=== PATIENT | male | born 1980 | race African-American/Black ===

== ENCOUNTER 2021-05-08 18:06 | Inpatient (IN) | payer OTHER, SELFPAY ==
--- NOTE | ~2021-05-08 | XR_ITS ---
EXAMINATION: XR chest 2V DATE: 05/08/2021 18:39 INDICATION: Chest pain. Cough. COVID-19 pneumonia. TECHNIQUE: Frontal and lateral views of the chest were obtained. COMPARISON: Chest 2 views 12/24/2018 FINDINGS: There are patchy airspace opacities in all right lung zones and in left mid and lower lung zones. No pleural effusion or pneumothorax. The heart size is normal. IMPRESSION: 1. Diffuse lung disease, consistent with COVID-19 pneumonia. Reviewed, dictated and finalized at location A.
--- NOTE | ~2021-05-08 | CT_ITS ---
EXAMINATION: CTA chest PE protocol DATE: 05/08/2021 21:40 INDICATION: Chest pain and shortness of breath. TECHNIQUE: Computed tomography angiography (CTA) of the chest was performed with 200 mL Omnipaque-350 intravenous contrast timed to evaluate the pulmonary arteries. Coronal maximum intensity projection 3D-reconstructions were created by the technologist. Automated exposure control and iterative reconst ruction technique were employed. The dose-length product was 622.61 mGy-cm. COMPARISON: CT abdomen and pelvis 08/04/2019 FINDINGS: There are patchy groundglass and airspace opacities in all lobes. No pleural effusion. The heart size is normal. No pericardial effusion. There is no pulmonary embolus. There is mild thoracic spondylosis. IMPRESSION: 1. No pulmonary embolus. Sensitivity is mildly decreased by motion artifact. 2. Diffuse lung disease, consistent with COVID-19 pneumonia. Reviewed, dictated and finalized at location A.
--- NOTE | 2021-05-08 18:09 | ECG_ITS ---
Measurements Intervals [place] Rate: 97 P: 31 NC: 126 QRS: 48 QRSD: 72 T: 13 QT: 297 QTc: 378 Interpretive Statements SINUS RHYTHM NORMAL ECG Electronically Signed On 05-08-2021 19:14:06 CDT by Umer Ray D.O.
[2021-05-08 18:10] VITALS: BP 151/62; PULSE 104; RESP 28; TEMP 37.8; O2SAT 92
[2021-05-08 18:28] LABS: Basophils Percent Auto 0.2 % (0.2-1.2); Hematocrit 42.4 % (42.0-52.0); Hemoglobin 13.7 g/dL (14.0-18.0); Immature Granulocyte Absolute 0.01 K/mm3 (0.00-0.031); Immature Granulocyte Percent A 0.2 % (0-0.5); Immature Platelet Fraction Pct 6.4 % (0.9-11.2); Lymphocytes Absolute Auto 1.98 K/mm3 (0.9-3.2); Lymphocytes Percent Auto 37.6 % (18.3-44.2); Mean Corpuscular HGB Conc 32.3 g/dl (32-36); Mean Corpuscular Hemoglobin 28.8 pg (26-34); Mean Corpuscular Volume 89.1 fl (80-100); Mean Platelet Volume 11.1 fl (7.4-10.4); Monocytes Absolute Auto 0.2 K/mm3 (0.1-0.6); Neutrophils Absolute Auto 3.1 K/mm3 (1.3-6.7); Platelet Count Result 138 k/mm3 (150-375); Red Blood Count 4.76 M/mm3 (4.6-6.20); Red Cell Distribution Width 11.9 % (11.5-14.5); White Blood Count 5.3 K/mm3 (4.5-10.0)
[2021-05-08 18:41] LABS: Stomatocytes 1+ (NORMAL)
[2021-05-08 18:42] LABS: Anion Gap 10 mmol/L (8-16); Blood Urea Nitrogen 17 mg/dL (9-20); Carbon Dioxide 27 mmol/L (22-30); Chloride 96 mmol/L (98-107); Estimated Glomerular Filt Rate > 60; Glucose 108 mg/dL (65-110); Potassium 4.1 mmol/L (3.4-5.0); Sodium 133 mmol/L (137-145)
[2021-05-08 18:53] LABS: Troponin I < 0.012 ng/mL (0.000-0.034)
--- NOTE | 2021-05-08 19:45 | PC.NURSE ---
pt O2 sat 90% per PA Dennis pt placed 2 L nasal cannula
--- NOTE | 2021-05-08 19:50 | ED.CHESTPAIN ---
HPI - Chest Pain General Chief Complaint: Chest Pain Stated Complaint: COVID +, SOB, chest pain Time Seen by Provider: 05/08/21 19:29 Source: patient Mode of arrival: ambulatory Limitations: no limitations History of Present Illness HPI narrative: This is a 40-year-old male that presents to the emergency department for ongoing chest pain and shortness of breath. Reports symptoms started on 30 of April. He tested positive for Covid on the . He did not get a Covid vaccine. Reports fever, cough, nausea, vomiting. Denies lower extremity edema. Related Data Allergies Allergy/AdvReac Type Severity Reaction Status Date / Time No Known Allergies Allergy Unknown Verified 05/08/21 20:01 Review of Systems Review of Systems: CONSTITUTIONAL: Reports fever ENT: Reports rhinorrhea, congestion, sore throat CARDIOVASCULAR: Reports chest pain RESPIRATORY: Reports cough and dyspnea. GASTROINTESTINAL: Reports nausea, vomiting All systems reviewed & are unremarkable except as noted in HPI and below PMFSH Past Medical History Medical History (Updated 05/08/21 @ 22:35 by Paige Collins PA-C) History of seizures Social History Social History (Updated 05/08/21 @ 19:55 by Paige Collins PA-C) Substance use: never Exam Narrative: GENERAL: Ill-appearing, well-nourished, and in no acute distress. HEAD: Normocephalic, atraumatic. EYES: EOMI. ENT: Nares clear, no rhinorrhea or epistaxis. Mucous membranes moist. Oropharynx without tonsillar hypertrophy exudate or other lesions. Bilateral TMs pearly alvarez non-bulging NECK: Supple. No adenopathy or masses. CHEST: No respiratory distress. Rales noted at the lung bases. No wheezes or rhonchi HEART: Regular rate and rhythm. No murmur heard. Normal peripheral pulses. ABDOMEN: Soft, nontender, nondistended, normal active bowel sounds. EXTREMITIES: Normal range of motion. No edema. SKIN: Warm, dry, no rash. NEURO: No focal deficits. Alert and oriented x3. PSYCH: Normal mood and affect Course Consultations Consultation #1: Spoke with hospitalist about patient and workup who accepts admission Date: 05/08/21 Time: 22:30 Vital Signs Vital signs: Vital Signs Temperature 100.0 F H 05/08/21 18:10 Pulse Rate 104 H 05/08/21 18:10 Respiratory Rate 28 H 05/08/21 18:10 Blood Pressure 151/62 H 05/08/21 18:10 Pulse Oximetry 92 05/08/21 18:10 Temperature 100.0 F H 05/08/21 18:10 Pulse Rate 77 05/08/21 22:28 Respiratory Rate 24 H 05/08/21 22:28 Blood Pressure 120/72 05/08/21 22:28 Pulse Oximetry 95 05/08/21 22:28 MDM - Chest Pain MDM Narrative Medical decision making narrative: Patient presents emergency department for ongoing shortness of breath and chest pain since recent diagnosis of Covid. Febrile and tachycardic upon arrival. Patient also tachypneic with oxygen saturation remaining around 90. He was placed on 2 L nasal cannula with improvement. Oxygen saturation has been in the mid 90s and his respiratory rate has normalized. CBC and metabolic panel without concerning findings. LDH is elevated. EKG without ST changes. Baseline and 3-hour troponin are negative. D-dimer was elevated, so CTA of the chest was obtained. No evidence of PE. Does show diffuse lung disease consistent with Covid pneumonia. Patient hydrated and given anti-emetic and antipyretic. Started on dexamethasone and remdesivir. Spoke with hospitalist about patient and workup who accepts admission Lab Data Attestation: I reviewed the patient's lab results. Result diagrams: 05/08/21 18:19 05/08/21 18:19 Labs: Lab Results 05/08/21 05/08/21 05/08/21 Range/Units 18:19 18:19 18:19 WBC 5.3 (4.5-10.0) K/mm3 RBC 4.76 (4.6-6.20) M/mm3 Hgb 13.7 L (14.0-18.0) g/dL Hct 42.4 (42.0-52.0) % MCV 89.1 (80-100) fl MCH 28.8 (26-34) pg MCHC 32.3 (32-36) g/dl RDW 11.9 (11.5-14.5) % Plt Count 138 L (150-375) k/mm3 MPV 11.1
[2021-05-08 19:54] LABS: Alveolar/Arterial O2 Gradient 43.3 mmHg; Carboxyhemoglobin 0.5 % THb (0-2.0); Fractional Inspired Oxygen 21 %; HCO3 ABG 25.7 mEq/l (22.0-26.0); Methemoglobin ABG 0.3 %THb (0-1.5); Oxygen Content ABG 18.1 %vol (16.0-22.0); Oxygen Saturation ABG 94.9 % (95.0-100.0); Oxyhemoglobin 92.8 % THb (90.0-100.0); PCO2 ABG 33.3 mmHg (35.0-45.0); PO2 ABG 66.6 mmHg (80.0-100.0); PO2 FiO2 Ratio Arterial Blood 3.17 %; Reduced Hemoglobin 6.4 %THb (0-5.0); Total Hemoglobin 13.9 g/dL (12.0-18.0)
[2021-05-08 19:56] VITALS: BP 152/74; PULSE 96; RESP 24; O2SAT 91
[2021-05-08 19:56] LABS: Device ROOM AIR; Modified Allen's Test Pass; Site Drawn RIGHT RADIAL; pH ABG 7.505 (7.350-7.450)
[2021-05-08 20:05] LABS: Alanine Aminotransferase 25 U/L (4-50); Albumin Level 4.1 g/dL (3.5-5.1); Alkaline Phosphatase 59 U/L (38-126); Aspartate Amino Transferase 53 U/L (17-59); Bilirubin,Total 0.4 mg/dL (0.2-1.3); Lactate Dehydrogenase 690 U/L (313-618)
[2021-05-08] MEDS: ONDANSETRON INJ 4 MG/2 ML VIAL IV PUSH (20:14)
[2021-05-08] MEDS: SODIUM CHLORIDE 0.9% IV 500 ML 999 ML IV CONT (20:14)
[2021-05-08] MEDS: levETIRAcetam 500MG/NACL 100ML 500 MG/100 ML BAG 400 MG IVPB (20:19)
[2021-05-08 20:30] LABS: Procalcitonin 0.4 ng/mL
[2021-05-08 20:40] LABS: INR 0.9
[2021-05-08 20:41] LABS: Partial Thromboplastin Time 28.3 SECONDS (22.3-36.8)
[2021-05-08 20:44] LABS: D Dimer 0.53 ug/mL (<0.48)
[2021-05-08] MEDS: DEXAMETHASONE SOD PHOS INJ 4 MG/ML VIAL 6 MG IV PUSH (21:49)
[2021-05-08] MEDS: REMDESIVIR 200 MG/NS 250 ML 200 MG/250 ML BAG 250 MG IVPB (21:58)
[2021-05-08 22:15] LABS: Troponin I < 0.012 ng/mL (0.000-0.034)
[2021-05-08 22:28] VITALS: BP 120/72; PULSE 77; RESP 24; O2SAT 95
[2021-05-08] MEDS: SODIUM CHLORIDE 0.9% IV 250 ML 30 ML IV CONT (23:00)
[2021-05-09] VITALS (14 sets, daily range): BP systolic 117–151; BP diastolic 60–77; PULSE 66–79; RESP 16–20; TEMP 36.6–37.3; O2SAT 90–98; BMI 30.8
[2021-05-09 01:29] LABS: Troponin I < 0.012 ng/mL (0.000-0.034)
--- NOTE | 2021-05-09 02:47 | ADMGEN ---
This patient, Kris Mcginnis, was admitted to 3 [facility] Surg Room 313-01 at 0000. Patient/family oriented to hospital policies and general routines including ID bracelet, bed and alarms, visiting hours, pain management, procedures, bathroom and other care routines, personal items, smoking policy, room service/diet, and visiting hours. Information on how to activate the Rapid Response Team has been discussed. Patient/Family are encouraged to report perceived risks to care and to ask questions if they do not understand what they are told or what they should do.
--- NOTE | 2021-05-09 02:59 | PM.IMHP ---
H&P: HPI History of Present Illness Date/Time: 05/09/21 02:59 Chief Complaint: shortness of breath Narrative: This is a 40-year-old male with past medical history nonsignificant for any illnesses. Patient presented today to the emergency room with complaints of shortness of breath cough nausea vomiting unable to keep anything down chills fevers for the last 3 days or so patient tested positive for COVID last Thursday. upon arrival to the emergency room patient was found to have oxygen saturation in the 80s which resolved on 2 L by nasal cannula. Preliminary workup was significant for chest x-ray with infiltrate a CT was negative for acute pulmonary embolism. Review of Systems Review of Systems: shortness of breath nausea vomiting chills fevers Constitutional: Constitutional: Reports chills, Reports fatigue and Reports fever(s) Eyes: Eyes: Denies change in vision ENT: Denies dysphagia, Denies nasal congestion, Denies nasal discharge, Denies nasal obstruction and Denies odynophagia Cardiovascular: Cardiovascular: Denies irregular heart rhythm, Denies radiating jaw, neck or arm pain, Denies palpitations and Denies dyspnea Respiratory: Respiratory: Reports cough, Reports dyspnea and Denies wheezing Gastrointestinal: Gastrointestinal: Reports nausea and Reports vomiting Genitourinary: Genitourinary: Reports no additional male genitourinary complaints Musculoskeletal: Musculoskeletal: Reports no additional musculoskeletal complaints Integumentary/Breasts: Skin/Breast: Reports system reviewed and no additional complaints, except as docu Neurologic: Reports system reviewed and no additional complaints, except as documented Psychiatric: Psychiatric: Reports no additional psychiatric complaints Endocrine: Endocrine: Reports no additional endocrine complaints Hematologic/Lymphatic: Hematologic/Lymphatic: Reports no additional hematologic/lymphatic complaints Allergic/Immunologic: Allergic/Immunologic: Reports no additional allergic/immunologic complaints [facility] Past Medical History Medical History History of seizures Social History Social History Smoking status: Never smoker Alcohol intake: never Substance use: never Spiritual care concerns: No Meds Home Medications and Allergies Home Medications Medication Instructions Recorded Confirmed Type acetaminophen [Acetaminophen Pain 500 mg PO Q6H PRN 05/09/21 05/09/21 History Relief] buspirone 20 mg PO DAILY 05/09/21 05/09/21 History divalproex 1,000 mg PO DAILY 05/09/21 05/09/21 History Allergies Allergy/AdvReac Type Severity Reaction Status Date / Time No Known Allergies Allergy Unknown Verified 05/09/21 00:52 Vital Signs Vital Signs - 24 hr 05/08/21 18:10 05/08/21 19:56 05/08/21 22:28 Temperature 100.0 F H Pulse Rate 104 H 96 77 Respiratory Rate 28 H 24 H 24 H Blood Pressure 151/62 H 152/74 H 120/72 Pulse Oximetry 92 91 95 05/09/21 00:00 05/09/21 01:18 05/09/21 01:31 Temperature 97.9 F Pulse Rate 78 78 79 Respiratory Rate 20 20 Blood Pressure 138/71 Pulse Oximetry 90 90 Exam Narrative: laying in the rocha Const: General: comfortable, no acute distress, well developed, alert, awake and other ( well-appearing) Nutritional Appearance: average body habitus Orientation/consciousness: patient oriented x3 HENMT: Head: normal to inspection, normocephalic and atraumatic Ears: hearing grossly normal bilaterally Face and sinus: normal facial exam Eyes: General: appearance normal, both eyes and all related structures Pupils: Equal, round and reactive pupils present EOM: EOMs intact bilaterally Neck: Neck: full ROM, no lymphadenopathy and no JVD Thyroid: thyroid normal Lymphatic: no lymphadenopathy noted Resp: Effort & Inspection: normal respiratory effort and able to speak in complete sentences Auscultati
[2021-05-09] MEDS: ACETAMINOPHEN 500 MG TABLET 1000 MG PO (03:30)
--- NOTE | 2021-05-09 03:54 | PC.NURSE ---
Per Dr Esteban covid plasma can be given AM 05/09/21.
[2021-05-09] MEDS: guaiFENesin/CODEINE (*CRX) 200/20 MG 10 ML SYRUP PO ×3 (04:00→16:33)
[2021-05-09 07:00] LABS: INR 0.9; Prothrombin Time 12.1 Seconds (11.1-14.7)
[2021-05-09 07:04] LABS: Alanine Aminotransferase 22 U/L (4-50); Estimated CRCL calculation 99 ml/min; Estimated Glomerular Filt Rate > 60
[2021-05-09] MEDS: SODIUM CHLORIDE 0.9% IV 250 ML 30 ML (16:33)
[2021-05-09] MEDS: TUBING, BLOOD PLUM PUMP TUBING 1 EACH XX (16:33)
--- NOTE | 2021-05-09 16:54 | PM.IMPN ---
Progress Note: A&P Assessment and Plan (1) Acute respiratory failure with hypoxia: Code(s): J96.01 - Acute respiratory failure with hypoxia Status: Acute Assessment and Plan: secondary to COVID-19 pneumonia CTA negative for pulmonary embolism maintaining adequate O2 sats on 2 L per nasal cannula continue supplemental O2 as needed with goal saturation 90% or above (2) Pneumonia due to 2019 novel coronavirus: Code(s): U07.1 - COVID-19; J12.82 - Pneumonia due to coronavirus disease 2019 Status: Acute Assessment and Plan: Patient tested positive on 05/01/2021. CXR and CTA showed diffuse lung disease consistent with COVID-19 pneumonia. Continue Remdesivir for up to 5 days. Started on 05/08. ALT within normal limits Continue dexamethasone for up to 10 days Supplemental O2 as needed Supportive care to include bronchodilators, expectorants, antipyretics, incentive spirometry Trend acute phase reactants Subjective Date/time seen: 05/09/21 16:54 Interval history: Date of service: 05/09/2021 Kris Mcginnis is a 40 year old male with a history of seizures who is seen in follow up for COVID-19. He is starting to feel better. He is still having dyspnea at rest and with exertion. He has chest and abdominal discomfort with deep inspiration or when coughing. He has been having coughing fits frequently with production of white sputum. He has been able to get up and ambulate around the room but is coughing more with exertion. Denies chest pain or palpitations. He denies fevers. Notes he had chills last night and woke up with sweats but none today. Appetite is poor. He has been drinking water and gatorade but has not eaten much of anything. Feels his sense of taste is altered and food is not sounding good. No anosmia. He had a headache this afternoon but it has improved with tylenol. Denies body aches. No abdominal pain. No diarrhea. His last BM was several days ago. No dizziness or lightheadedness, no weakness. He is in good spirits. Review of Systems Review of Systems: All systems reviewed & are unremarkable except as noted in HPI and below Exam Narrative: Mr. Mcginnis is a well-nourished, well-appearing 40-year-old male who is lying semi-recumbent in bed. He appears comfortable and is in NARD. Neuro: awake, alert and oriented x4, speech clear, no focal neuro deficits noted HEENMT: normocephalic, atraumatic, EOMI, sclerae anicteric, moist oral mucosa Neck: supple, no lymphadenopathy Respiratory: diminished breath sounds bilaterally with faint inspiratory crackles in left lower lobe, nonlabored breathing Cardio: regular rate, regular rhythm with S1-S2 Abdomen: nondistended, normoactive bowel sounds, soft, nontender to palpation Extremities: no edema, erythema, or tenderness to palpation, DP pulses 2+ bilaterally Skin: no rashes or lesions, warm and dry Psych: appropriate mood and affect, judgment and insight intact Objective Data Vital Signs Vital Signs: Vital Signs - 24 hr 05/08/21 18:10 05/08/21 19:56 05/08/21 22:28 Temperature 100.0 F H Pulse Rate 104 H 96 77 Respiratory Rate 28 H 24 H 24 H Blood Pressure 151/62 H 152/74 H 120/72 Pulse Oximetry 92 91 95 05/09/21 00:00 05/09/21 01:18 05/09/21 01:31 Temperature 97.9 F Pulse Rate 78 78 79 Respiratory Rate 20 20 Blood Pressure 138/71 Pulse Oximetry 90 90 05/09/21 04:00 05/09/21 08:00 05/09/21 08:45 Temperature 97.8 F 97.9 F Pulse Rate 70 66 67 Respiratory Rate 20 18 Blood Pressure 151/76 H 143/68 H Pulse Oximetry 92 96 96 05/09/21 12:00 05/09/21 16:00 05/09/21 16:26 Temperature 98.2 F 98.4 F 98.4 F Pulse Rate 71 74 73 Respiratory Rate 18 16 16 Blood Pressure 130/60 139/76 139/76 Pulse Oximetry 95 97 97 05/09/21 16:44 05/09/21 16:45 Temperature 99.1 F 99.1 F Pulse Rate 77 77 Respiratory Rate 16 16 Blood Pressure 140/77 140/77 Pulse Oximetry 97 97 Intake/Output Intake/Output: Intake &
[2021-05-09] MEDS: REMDESIVIR 100 MG/NS 250 ML 100 MG/250 ML BAG 250 MG IVPB (21:43)
[2021-05-09] MEDS: ACETAMINOPHEN 325 MG TABLET 650 MG PO (22:01)
[2021-05-10] VITALS (8 sets, daily range): BP systolic 112–136; BP diastolic 57–86; PULSE 64–76; RESP 14–18; TEMP 36.2–37.1; O2SAT 93–100
[2021-05-10 08:53] LABS: Hematocrit 39.7 % (42.0-52.0); Hemoglobin 12.5 g/dL (14.0-18.0); Mean Corpuscular HGB Conc 31.5 g/dl (32-36); Mean Corpuscular Hemoglobin 28.5 pg (26-34); Mean Corpuscular Volume 90.6 fl (80-100); Mean Platelet Volume 11.2 fl (7.4-10.4); Platelet Count Result 192 k/mm3 (150-375); Red Blood Count 4.38 M/mm3 (4.6-6.20); Red Cell Distribution Width 11.9 % (11.5-14.5); White Blood Count 6.7 K/mm3 (4.5-10.0)
[2021-05-10 09:02] LABS: INR 0.8; Prothrombin Time 11.4 Seconds (11.1-14.7)
[2021-05-10 09:05] LABS: Alanine Aminotransferase 24 U/L (4-50); Albumin Level 3.8 g/dL (3.5-5.1); Alkaline Phosphatase 51 U/L (38-126); Anion Gap 7 mmol/L (8-16); Aspartate Amino Transferase 47 U/L (17-59); Bilirubin,Total 0.3 mg/dL (0.2-1.3); Blood Urea Nitrogen 20 mg/dL (9-20); CRP 5.3 mg/dL (<1.0); Calcium 8.9 mg/dL (8.4-10.2); Carbon Dioxide 29 mmol/L (22-30); Chloride 105 mmol/L (98-107); Estimated CRCL calculation 99 ml/min; Estimated Glomerular Filt Rate > 60; Glucose 104 mg/dL (65-110); Potassium 4.3 mmol/L (3.4-5.0); Sodium 141 mmol/L (137-145)
[2021-05-10] MEDS: guaiFENesin 12 HR 600 MG TABCR PO ×2 (09:41→20:54)
[2021-05-10] MEDS: ENOXAPARIN 40 MG/0.4 ML SYRINGE SUB-Q (09:41)
[2021-05-10] MEDS: DIVALPROEX SODIUM ER 500 MG TAB.24H 1000 MG PO (09:42)
[2021-05-10] MEDS: ACETAMINOPHEN 325 MG TABLET 650 MG PO ×2 (10:29→22:12)
--- NOTE | 2021-05-10 10:48 | PM.IMPN ---
Progress Note: A&P Assessment and Plan (1) Acute respiratory failure with hypoxia: Code(s): J96.01 - Acute respiratory failure with hypoxia Status: Acute Assessment and Plan: Secondary to COVID-19 pneumonia CTA negative for pulmonary embolism maintaining adequate O2 sats on 2 L per nasal cannula continue supplemental O2 as needed with goal saturation 90% or above. Wean as tolerated. (2) Pneumonia due to 2019 novel coronavirus: Code(s): U07.1 - COVID-19; J12.82 - Pneumonia due to coronavirus disease 2019 Status: Acute Assessment and Plan: Tested positive on 05/01/2021. CXR and CTA showed diffuse lung disease consistent with COVID-19 pneumonia. Continue Remdesivir for up to 5 days. Started on 05/08. ALT within normal limits Continue dexamethasone for up to 10 days Supplemental O2 as needed Supportive care to include bronchodilators, expectorants, antipyretics, incentive spirometry, [place] Trend acute phase reactants Subjective Date/time seen: 05/10/21 10:48 Interval history: Date of service: 05/10/2021 Kris Mcginnis is a 40 year old male with a history of seizures who is seen in follow up for COVID-19. He is coughing more frequently today which causes him to feel short of breath. He does have pleuritic chest pain with coughing and has trouble with deep inspiration. cough is productive of clear-white mucus. He feels short of breath after having a coughing spell but a few minutes later he is able to recover and his shortness of breath is not a significant. He is still able to get up and walk to the bathroom. He had a good dinner last night but did not have breakfast yet this morning. Still drinking plenty of fluids. No abdominal pain, nausea, vomiting, diarrhea, fever, chills, or sweats. Had a mild frontal headache this morning. Denies any sinus congestion. Review of Systems Review of Systems: All systems reviewed & are unremarkable except as noted in HPI and below Exam Narrative: Mr. Mcginnis is a well-nourished, well-appearing 40-year-old male who is lying semi-recumbent in bed. He appears comfortable and is in NARD. Neuro: awake, alert and oriented x4, speech clear, no focal neuro deficits noted HEENMT: normocephalic, atraumatic, EOMI, sclerae anicteric, moist oral mucosa Neck: supple, no lymphadenopathy Respiratory: diminished breath sounds bilaterally. Able to speak in full sentences but interrupted with episodes of coughing. Breathing is more shallow. Cardio: regular rate, regular rhythm with S1-S2 Abdomen: nondistended, normoactive bowel sounds, soft, nontender to palpation Extremities: no edema, erythema, or tenderness to palpation, DP pulses 2+ bilaterally Skin: no rashes or lesions, warm and dry Psych: appropriate mood and affect, judgment and insight intact Objective Data Vital Signs Vital Signs: Vital Signs - 24 hr 05/09/21 12:00 05/09/21 16:00 05/09/21 16:26 Temperature 98.2 F 98.4 F 98.4 F Pulse Rate 69 72 73 Respiratory Rate 18 16 16 Blood Pressure 130/60 139/76 139/76 Pulse Oximetry 95 97 97 05/09/21 16:44 05/09/21 16:45 05/09/21 17:45 Temperature 99.1 F 99.1 F 97.8 F Pulse Rate 77 77 79 Respiratory Rate 16 16 16 Blood Pressure 140/77 140/77 142/64 H Pulse Oximetry 97 97 95 05/09/21 18:50 05/09/21 20:00 05/10/21 00:00 Temperature 98 F 97.9 F 98.8 F Pulse Rate 78 75 70 Respiratory Rate 20 18 18 Blood Pressure 117/64 133/68 136/58 L Pulse Oximetry 96 98 96 05/10/21 04:00 05/10/21 08:59 Temperature 97.8 F 98.5 F Pulse Rate 65 68 Respiratory Rate 18 14 Blood Pressure 131/57 L 135/61 Pulse Oximetry 100 98 Intake/Output Intake/Output: Intake & Output 05/07/21 05/08/21 05/09/21 05/10/21 23:59 23:59 23:59 23:59 Intake Total 915 2703 750 Output Total 900 600 Balance 915 1803 150 Meds/Results Medications: Active Medications Generic Name Dose Route Start Last Admin Trade Name Freq PRN Reason Stop Dos
[2021-05-10] MEDS: BENZONATATE 100 MG CAPSULE PO ×2 (11:40→22:12)
[2021-05-10] MEDS: REMDESIVIR 100 MG/NS 250 ML 100 MG/250 ML BAG 250 MG IVPB (22:12)
[2021-05-11] VITALS (7 sets, daily range): BP systolic 132–157; BP diastolic 65–84; PULSE 61–100; RESP 12–18; TEMP 36.2–36.8; O2SAT 92–99
[2021-05-11 07:34] LABS: Hematocrit 37.8 % (42.0-52.0); Hemoglobin 11.9 g/dL (14.0-18.0); Mean Corpuscular HGB Conc 31.5 g/dl (32-36); Mean Corpuscular Hemoglobin 28.4 pg (26-34); Mean Corpuscular Volume 90.2 fl (80-100); Mean Platelet Volume 11.2 fl (7.4-10.4); Platelet Count Result 250 k/mm3 (150-375); Red Blood Count 4.19 M/mm3 (4.6-6.20); White Blood Count 7.1 K/mm3 (4.5-10.0)
[2021-05-11 07:42] LABS: Alanine Aminotransferase 27 U/L (4-50); Albumin Level 3.8 g/dL (3.5-5.1); Alkaline Phosphatase 50 U/L (38-126); Anion Gap 7 mmol/L (8-16); Aspartate Amino Transferase 40 U/L (17-59); Bilirubin,Total 0.3 mg/dL (0.2-1.3); Blood Urea Nitrogen 18 mg/dL (9-20); Calcium 9.1 mg/dL (8.4-10.2); Carbon Dioxide 27 mmol/L (22-30); Chloride 105 mmol/L (98-107); Estimated CRCL calculation 117 ml/min; Estimated Glomerular Filt Rate > 60; Glucose 120 mg/dL (65-110); Potassium 4.3 mmol/L (3.4-5.0); Sodium 139 mmol/L (137-145)
[2021-05-11] MEDS: guaiFENesin 12 HR 600 MG TABCR PO (08:41)
[2021-05-11] MEDS: DIVALPROEX SODIUM ER 500 MG TAB.24H 1000 MG PO (08:41)
[2021-05-11] MEDS: ENOXAPARIN 40 MG/0.4 ML SYRINGE SUB-Q (08:41)
[2021-05-11] MEDS: BENZONATATE 100 MG CAPSULE PO (08:41)
[2021-05-11] MEDS: ACETAMINOPHEN 325 MG TABLET 650 MG PO (10:13)
--- NOTE | 2021-05-11 11:06 | PCRCNOTE ---
HOME OXYGEN EVALUATION COMPLETE; PT. HAS NO O2 REQUIREMENTS. PT.'S R.N. AND AYDE [employer] BOTH NOTIFIED OF RESULTS.
--- NOTE | 2021-05-11 11:20 | PM.DS ---
DS: Admitting Diagnosis Admitting Diagnosis COVID-19 pneumonia DS: Discharge Diagnosis Discharge Diagnosis (1) Acute respiratory failure with hypoxia: Code(s): J96.01 - Acute respiratory failure with hypoxia Status: Acute Assessment and Plan: Secondary to COVID-19 pneumonia CTA negative for pulmonary embolism Required up to 2 L supplemental oxygen per nasal cannula and was able to be weaned to room air. Home O2 eval performed with no need for oxygen with activity or rest (2) Pneumonia due to 2019 novel coronavirus: Code(s): U07.1 - COVID-19; J12.82 - Pneumonia due to coronavirus disease 2019 Status: Acute Assessment and Plan: Tested positive on 05/01/2021. CXR and CTA showed diffuse lung disease consistent with COVID-19 pneumonia. Received 3 doses of IV Remdesivir. Received 4 doses of IV dexamethasone. Will continue p.o. dexamethasone to complete 10 days as an outpatient. Continue with supportive care. Discharge home with expectorants and albuterol inhaler Has not received COVID-19 vaccine. He is interested in getting the vaccine 90 days post COVID DS: Summary Hospital Course Hospital Course: Date of admission: 05/08/2021 Date of discharge: 05/11/2021 Kris main is a 40-year-old male with history of seizures to presented to the emergency department on 05/08/2021 with complaints of ongoing dyspnea and chest discomfort after testing positive for COVID-19 on 05/01/2021. Upon presentation to the emergency department, he was febrile at 100.0?, mildly tachypneic with O2 sats around 90% and he was started on supplemental O2 at 2 L. CBC with slightly decreased hemoglobin and mild thrombocytopenia, BMP with sodium 133, chloride 96, creatinine 1.4, additional electrolytes stable, troponin negative, elevated LDH and D-dimer, CXR with diffuse lung disease consistent with COVID 19 pneumonia, and CTA also with diffuse lung disease and no PE. He was admitted to the hospitalist service for further evaluation management. Please see above for further details. He was treated for COVID-19 pneumonia and had symptomatic improvement with steroids and antivirals. He began feeling much better and was able to be weaned to room air. He requested discharge home. Home O2 eval performed with no need for supplemental oxygen. We discussed COVID-19 precautions as well as worrisome signs and symptoms for which to return. He was educated on his medications. Given his overall improvement, he was determined to no longer require inpatient care and was felt to be stable for discharge. He will need to follow-up with his PCP within 1 week for further monitoring. He was discharged in hemodynamically stable condition on 05/11/2021. Status at Discharge Functional status at discharge: independent ambulation Overall status at discharge: patient is progressing back to baseline Time Spent with Patient Time attestation: Total time spent providing and/or coordinating discharge services: 45 minutes Time spent: Greater than 30 minutes Exam Narrative: Mr. Main is a well-nourished, well-appearing 40-year-old male who is lying semi-recumbent in bed. He appears comfortable and is in NARD. Neuro: awake, alert and oriented x4, speech clear, no focal neuro deficits noted HEENMT: normocephalic, atraumatic, EOMI, sclerae anicteric, moist oral mucosa Neck: supple, no lymphadenopathy Respiratory: diminished breath sounds bilaterally. Able to speak in full sentences. Breathing is nonlabored. Cardio: regular rate, regular rhythm with S1-S2 Abdomen: nondistended, normoactive bowel sounds, soft, nontender to palpation Extremities: no edema, erythema, or tenderness to palpation, DP pulses 2+ bilaterally Skin: no rashes or lesions, warm and dry Psych: appropriate mood and affect, judgment and insight intact DS: Data Data Completed and Pending Labs on day of discharge: Labs from last 24 hours 05/11/21 05/11/21 06:28 0
[2021-05-13 07:05] LABS: Levetiracetam Keppra <1.0 mcg/mL (12.0-46.0)
== END 2021-05-11 12:15 | disposition home or self-care (01) | DRG 137 ==
LOC: ANHED 22:35 → ANH3MEDSUR 05-09 00:12
PROVIDERS: Physician Assistant; Admitting Provider Internal Medicine; Emergency Provider Family Medicine; PCP Family Medicine; Visit Provider Internal Medicine
DX: U07.1 COVID-19 (principal); J12.82 Pneumonia due to coronavirus disease 2019; R07.9 Chest pain, unspecified; J96.01 Acute respiratory failure with hypoxia; R11.2 Nausea with vomiting, unspecified; R50.9 Fever, unspecified; R56.9 Unspecified convulsions; R51.9 Headache, unspecified
CPT/HCPCS: 36415; 36430; 36600; 71046; 71275; 80048; 80053; 80076; 80177; 82375; 82565; 82728; 82805; 83050; 83615; 84145; 84460; 84484; 85025; 85027; 85055; 85380; 85610; 85730; 86140; 86900; 86901; 93005; 94618; 94667; 96365; 96367; 96375; 99291; A9270; G0378; G0379; J0131; J0456; J0696; J1100; J1650; J1953; J2405; J7040; J7050; P9059; Q9967

== ENCOUNTER 2021-05-17 13:17 | Emergency (ER) | payer OTHER, SELFPAY ==
--- NOTE | ~2021-05-17 | XR_ITS ---
EXAMINATION: XR chest 2V DATE: 05/17/2021 13:46 INDICATION: Shortness of breath, COVID positive TECHNIQUE: PA and lateral views of the chest are obtained. COMPARISON: 05/08/2021 FINDINGS: There are persistent but decreased opacities throughout all lung zones. There is no pleural effusion or pneumothorax. The cardiomediastinal silhouette is normal. The visualized bones and soft tissues are unremarkable. IMPRESSION: 1. Persistent but improved airspace opacities throughout all lung zones, likely resolving COVID pneum onia. Reviewed, dictated and finalized at location B. IMPRESSION: 1. Persistent but improved airspace opacities throughout all lung zones, likely resolving COVID pneumonia.
--- NOTE | 2021-05-17 13:18 | ECG_ITS ---
Measurements Intervals [place] Rate: 87 P: 26 ND: 127 QRS: 23 QRSD: 71 T: -34 QT: 333 QTc: 403 Interpretive Statements SINUS RHYTHM BORDERLINE ST-T WAVE ABNORMALITY- ANTEROLAT/INF LEADS BASELINE ARTIFACT- I, II, III, AVR, AVL, AVF, V1, V3-V6 BORDERLINE ECG Electronically Signed On 05-17-2021 13:49:44 CDT by Umer Ray D.O.
[2021-05-17 13:19] VITALS: BP 132/86; PULSE 98; RESP 18; TEMP 36.2; O2SAT 99
--- NOTE | 2021-05-17 13:45 | PC.NURSE ---
financial services technician attempted to draw labs from pt twice and was unsuccessfull. Pt asked to stop and wait a while
[2021-05-17 15:37] VITALS: BP 133/75; PULSE 82; RESP 17; TEMP 37.4; O2SAT 100
[2021-05-17 15:50] LABS: Hematocrit 44.5 % (42.0-52.0); Hemoglobin 14.2 g/dL (14.0-18.0); Mean Corpuscular HGB Conc 31.9 g/dl (32-36); Mean Corpuscular Hemoglobin 28.7 pg (26-34); Mean Corpuscular Volume 90.1 fl (80-100); Platelet Count Result 485 k/mm3 (150-375); Red Blood Count 4.94 M/mm3 (4.6-6.20); Red Cell Distribution Width 12.6 % (11.5-14.5); White Blood Count 10.6 K/mm3 (4.5-10.0)
[2021-05-17 16:08] LABS: D Dimer 0.49 ug/mL (<0.48)
[2021-05-17 16:40] LABS: Platelet Estimate Increased (Adequate)
--- NOTE | 2021-05-17 16:51 | ED.SOB ---
HPI - SOB/Dyspnea General Chief Complaint: Shortness of Breath/Dyspnea Stated Complaint: COVID+, SOB Time Seen by Provider: 05/17/21 16:01 History of Present Illness HPI Narrative: Patient presents with right-sided chest pain and shortness of breath. Patient reports he was recently admitted for Covid pneumonia he feels overall he has been getting get better but now he has a persistent cough shortness of breath and his chest pain is moved from the anterior position to the right lateral position. Pain is achy worse with cough worse with deep inspiration he was concerned that maybe he is having a blood clot so wanted to come in for evaluation. He denies fevers, nausea, vomiting. Related Data Home Medications Medication Instructions Recorded Confirmed acetaminophen [Acetaminophen Pain 500 mg PO Q6H PRN 05/09/21 05/09/21 Relief] buspirone 20 mg PO DAILY 05/09/21 05/09/21 divalproex 1,000 mg PO DAILY 05/09/21 05/09/21 Allergies Allergy/AdvReac Type Severity Reaction Status Date / Time No Known Allergies Allergy Unknown Verified 05/09/21 00:52 Review of Systems Review of Systems: CONSTITUTIONAL: Denies fever, chills, or sweats. EYES: Denies visual changes, redness, or discharge. ENT: Denies rhinorrhea, congestion, sore throat, or otalgia. CARDIOVASCULAR: Denies palpitations, or edema. RESPIRATORY: Reports cough and shortness of breath GASTROINTESTINAL: Denies abdominal pain, nausea, vomiting, or diarrhea. GENITOURINARY: Denies dysuria or hematuria. SKIN: Denies rash or itching. MUSCULOSKELETAL: Denies back pain, joint pain, or myalgia. NEUROLOGIC: Denies headache, numbness, dizziness, or weakness. PSYCHIATRIC: Denies anxiety or depression. PMFSH Past Medical History Medical History History of seizures Social History Social History Smoking status: Never smoker Alcohol intake: never Substance use: never Gender identity (if verbalized by the patient): Male Spiritual care concerns: No Exam Narrative: GENERAL: Well-appearing, well-nourished, and in no acute distress. HEAD: Normocephalic, atraumatic. EYES: PERRLA and EOMI. ENT: Nares clear, no rhinorrhea or epistaxis. Mucous membranes moist. NECK: Supple. No masses. No JVD CHEST: Clear to auscultation. No respiratory distress. No wheezes rales or rhonchi mild tenderness palpation on the right lateral lower chest wall HEART: Regular rate and rhythm. No murmur heard. Normal peripheral pulses. ABDOMEN: Soft, nontender, nondistended, normal active bowel sounds. EXTREMITIES: Normal range of motion. No edema. SKIN: Warm, dry, no rash. NEURO: No focal deficits. Alert and oriented x3. PSYCH: Normal mood and affect. Course Reevaluation(s) Reevaluation #1: Patient resting comfortably labs reviewed with patient. More specifically discussed improving dimer and chest x-ray findings. Discussed risk benefits of CT evaluation given patient's concern based on the reproducibility downtrending dimer and improving chest x-ray findings there is low clinical concern for PE symptoms likely related to coughing and represent chest wall discomfort Vital Signs Vital signs: Vital Signs Temperature 36.2 C L 05/17/21 13:19 Pulse Rate 98 05/17/21 13:19 Respiratory Rate 18 05/17/21 13:19 Blood Pressure 132/86 05/17/21 13:19 Pulse Oximetry 99 05/17/21 13:19 Temperature 36.6 C 05/17/21 17:21 Pulse Rate 87 05/17/21 17:21 Respiratory Rate 18 05/17/21 17:21 Blood Pressure 138/78 05/17/21 17:21 Pulse Oximetry 99 05/17/21 17:21 MDM - SOB/Dyspnea MDM Narrative Medical decision making narrative: H&P as above, vss, pt looks clinically well, exam reassuring, labs with mild abnormalities however they are improving from recent hospitalizations img improving from prior x-ray, additional labs/img considered, symptomatic relief available as needed
[2021-05-17 17:21] VITALS: BP 138/78; PULSE 87; RESP 18; TEMP 36.6; O2SAT 99
== END 2021-05-17 17:21 | disposition home or self-care (01) ==
PROVIDERS: Emergency Medicine; Emergency Provider Emergency Medicine; PCP Family Medicine
DX: U07.1 COVID-19 (principal); J12.82 Pneumonia due to coronavirus disease 2019; R56.9 Unspecified convulsions
CPT/HCPCS: 36415; 71046; 85025; 85380; 93005; 99284

== ENCOUNTER 2021-08-05 09:00 | Outpatient (CLI) | payer OTHER, SELFPAY ==
--- NOTE | ~2021-08-05 | XR_ITS ---
EXAMINATION: XR chest 2V DATE: 08/05/2021 09:15 INDICATION: Shortness of breath TECHNIQUE: Frontal and lateral views of the chest are obtained COMPARISON: 05/17/2021 FINDINGS: The lungs are free of acute opacities. There is no pleural effusion or pneumothorax. The ca rdiomediastinal silhouette is normal. There is mild thoracic spondylosis. IMPRESSION: 1. No acute cardiopulmonary abnormality. Reviewed, dictated and finalized at location B.
== END 2021-08-05 09:01 | disposition home or self-care (01) ==
PROVIDERS: PCP Family Medicine; Visit Provider Nurse Practitioner Family
DX: R06.09 Other forms of dyspnea (principal)
CPT/HCPCS: 71046

== ENCOUNTER 2021-11-29 22:09 | Emergency (ER) | payer OTHER, SELFPAY ==
--- NOTE | ~2021-11-29 | XR_ITS ---
EXAMINATION: XR elbow LT min 3V DATE: 11/29/2021 22:41 INDICATION: Left elbow pain TECHNIQUE: Anteroposterior, two oblique and lateral views of the left elbow were obtained. COMPARISON: None. FINDINGS: Alignment is normal. No fracture or joint effusion. Joint spaces are normal. Soft tissues are unremarkable. IMPRESSION: 1. No acute osseous abnormality. Reviewed, dictated and finalized at location F. ER BARREL DRUM
[2021-11-29 22:11] VITALS: BP 153/79; PULSE 78; RESP 16; TEMP 36.4; O2SAT 99
--- NOTE | 2021-11-29 22:26 | ED.UPPEXIN ---
HPI - Extremity Injury (Upper) General Chief Complaint: Extremity Injury, Upper Stated Complaint: L elbow injury Time Seen by Provider: 11/29/21 22:20 Source: patient Mode of arrival: ambulatory Limitations: no limitations History of Present Illness HPI narrative: 41-year-old male presents today with complaints of left elbow pain that started a week ago. Patient states his elbow started were hurting after he worked out. Patient denies any trauma. Patient is not new to working out. Patient has tried Tylenol and ibuprofen without relief. Related Data Home Medications Medication Instructions Recorded Confirmed acetaminophen [Acetaminophen Pain 500 mg PO Q6H PRN 05/09/21 05/09/21 Relief] buspirone 20 mg PO DAILY 05/09/21 05/09/21 divalproex 1,000 mg PO DAILY 05/09/21 05/09/21 Allergies Allergy/AdvReac Type Severity Reaction Status Date / Time No Known Allergies Allergy Unknown Verified 11/29/21 22:13 Review of Systems Review of Systems: CONSTITUTIONAL: Denies fever, chills, or sweats. EYES: Denies visual changes, redness, or discharge. ENT: Denies rhinorrhea, congestion, sore throat, or otalgia. CARDIOVASCULAR: Denies chest pain, palpitations, or edema. RESPIRATORY: Denies cough or dyspnea. GASTROINTESTINAL: Denies abdominal pain, nausea, vomiting, or diarrhea. GENITOURINARY: Denies dysuria or hematuria. SKIN: Denies rash or itching. MUSCULOSKELETAL: Denies back pain or myalgia. Left elbow pain NEUROLOGIC: Denies headache, numbness, dizziness, or weakness. PSYCHIATRIC: Denies anxiety or depression. PMFSH Past Medical History Medical History History of seizures Social History Social History Smoking status: Never smoker Alcohol intake: never Substance use: never Gender identity (if verbalized by the patient): Male Spiritual care concerns: No Exam Narrative: GENERAL: Well-appearing, well-nourished, and in no acute distress. HEAD: Normocephalic, atraumatic. EYES: PERRLA and EOMI. ENT: Nares clear, no rhinorrhea or epistaxis. Mucous membranes moist. Oropharynx without tonsillar hypertrophy exudate or other lesions. Bilateral TMs pearly alvarez nonbulging NECK: Supple. No adenopathy or masses. No carotid bruits or JVD CHEST: Clear to auscultation. No respiratory distress. No wheezes rales or rhonchi HEART: Regular rate and rhythm. No murmur heard. Normal peripheral pulses. ABDOMEN: Soft, nontender, nondistended, normal active bowel sounds. EXTREMITIES: Normal range of motion. No edema. tenderness to left medial and lateral elbow. Supinaion and pronation of left arm without difficulty or pain SKIN: Warm, dry, no rash. NEURO: No focal deficits. Alert and oriented x3. PSYCH: Normal mood and affect. Course Vital Signs Vital signs: Vital Signs Temperature 36.4 C L 11/29/21 22:11 Pulse Rate 78 11/29/21 22:11 Respiratory Rate 16 11/29/21 22:11 Blood Pressure 153/79 H 11/29/21 22:11 Pulse Oximetry 99 11/29/21 22:11 Temperature 36.4 C L 11/29/21 22:11 Pulse Rate 60 11/29/21 23:15 Respiratory Rate 16 11/29/21 23:15 Blood Pressure 147/65 H 11/29/21 23:15 Pulse Oximetry 99 11/29/21 23:15 MDM - Extremity Injury (Upper) Differential Diagnosis Differential diagnosis: Likely other (tendonitis, radial head/neck fracture, strain) Imaging Data Radiologist's impression: Impressions Elbow X-Ray 11/29/21 22:44 IMPRESSION: 1. No acute osseous abnormality. Discharge Plan Discharge Clinical Impression: Left elbow tendinitis Patient Disposition: Home, Self-Care Condition: Stable Instructions: Antibiotic Form, Tendinitis (ED) Additional Instructions: Use ibuprofen 800 mg every 8 hours as needed for pain. Take around the clock for the next 5-7 days. Make sure to take it with food. Rest the elbow and ice it 20 minutes at a time a couple t
[2021-11-29] MEDS: KETOROLAC 10 MG TABLET PO (22:41)
[2021-11-29 23:15] VITALS: BP 147/65; PULSE 60; RESP 16; O2SAT 99
== END 2021-11-29 23:15 | disposition home or self-care (01) ==
PROVIDERS: Emergency Provider Nurse Practitioner Family; PCP Family Medicine
DX: M77.9 Enthesopathy, unspecified (principal)
CPT/HCPCS: 73080; 99283; A9270

== ENCOUNTER 2022-02-03 08:43 | Outpatient (CLI) | payer OTHER, SELFPAY ==
--- NOTE | ~2022-02-03 | MR_ITS ---
EXAMINATION: MR elbow LT wo con DATE: 02/03/2022 09:48 INDICATION: Left elbow pain TECHNIQUE: Magnetic resonance imaging (MRI) of the left elbow was performed without intravenous contr ast. Sequences included coronal, axial, and sagittal PD-weighted FS FSE and coronal, axial, and sagit haley PD-weighted FSE. COMPARISON: None FINDINGS: Osseous/other: Normal alignment. Normal marrow signal with no marrow edema, fracture, osteochondral lesion or abnor mal marrow replacing process. Tendons: Triceps, biceps brachii and brachialis tendons are normal. Common flexor tendon wad is normal. Mild tendinopathy without discrete tear at the lateral epicondylar origin of the common extensor tendon wa d. Ligaments: The medial and lateral collateral ligament complexes are normal. Cubital tunnel: Cubital tunnel is unremarkable with normal signal and caliber of the ulnar nerve. Fluid: Physiologic amount of fluid the elbow joint. IMPRESSION: 1. Mild tendinopathy without discrete tear at the lateral epicondylar origin of the common extensor t endon wad. Reviewed, dictated and finalized at location A. IMPRESSION: 1. Mild tendinopathy without discrete tear at the lateral epicondylar origin of the common extensor tendon wad.
== END 2022-02-03 08:44 | disposition home or self-care (01) ==
LOC: ANHIMG 08:47
PROVIDERS: PCP Family Medicine; Visit Provider Nurse Practitioner Family
DX: M25.522 Pain in left elbow (principal)
CPT/HCPCS: 73221

== ENCOUNTER 2022-02-28 20:36 | Emergency (ER) | payer OTHER, SELFPAY ==
--- NOTE | ~2022-02-28 | XR_ITS ---
XR hand RT min 3V 02/28/2022 20:57 INDICATION: Right third and fourth digit pain PROCEDURE: 3 views right hand COMPARISON: 07/07/2015 FINDINGS: Fracture, dislocation or subluxation is not identified. The soft tissues appear within norm al limits. No foreign bodies are identified. IMPRESSION: 1: NO ACUTE BONE OR JOINT ABNORMALITY IDENTIFIED. Reviewed, dictated and finalized at location A.
[2022-02-28 20:43] VITALS: BP 120/70; PULSE 78; RESP 14; TEMP 36.3; O2SAT 100
--- NOTE | 2022-02-28 21:16 | ED.UPPEXIN ---
HPI - Extremity Injury (Upper) General Chief Complaint: Extremity Injury, Upper Stated Complaint: right hand injury Time Seen by Provider: 02/28/22 20:47 History of Present Illness HPI narrative: Patient is a 41-year-old male complaining of right middle and ring finger pain, moderate, dull, worse with movement and palpation after he bent them over while doing a rosemary 2 weeks ago. Patient denies any other pain or injury. Related Data Home Medications Medication Instructions Recorded Confirmed acetaminophen 500 mg tablet 500 mg PO Q6H PRN Pain, Mild 05/09/21 05/09/21 (Acetaminophen Pain Relief) buspirone 10 mg tablet 20 mg PO DAILY 05/09/21 05/09/21 divalproex 500 mg tablet,extended 1,000 mg PO DAILY 05/09/21 05/09/21 release 24 hr Allergies Allergy/AdvReac Type Severity Reaction Status Date / Time No Known Allergies Allergy Unknown Verified 11/29/21 22:13 Review of Systems Review of Systems: All systems reviewed & are unremarkable except as noted in HPI and below PMFSH Past Medical History Medical History History of seizures Social History Social History Smoking status: Never smoker Alcohol intake: never Substance use: never Gender identity (if verbalized by the patient): Male Spiritual care concerns: No Exam Skin: General skin exam: normal color, no rashes or lesions noted, elasticity normal and turgor normal Extrem: Right upper extremity: normal to inspection, full ROM, normal capillary refill and Extremity exam: right hand normal to inspection, abnormal to inspection, normal capillary refill, neuromotor exam normal and other (Pain on range of motion of the third and fourth digit right hand, full range of motion, neurovascular is intact); no cyanosis, no edema and joint enlargement noted Course Vital Signs Vital signs: Vital Signs Temperature 36.3 C L 02/28/22 20:43 Pulse Rate 78 02/28/22 20:43 Respiratory Rate 14 02/28/22 20:43 Blood Pressure 120/70 02/28/22 20:43 Pulse Oximetry 100 02/28/22 20:43 Oxygen Delivery Room Air 02/28/22 20:43 Temperature 36.3 C L 02/28/22 20:43 Pulse Rate 78 02/28/22 20:43 Respiratory Rate 14 02/28/22 20:43 Blood Pressure 120/70 02/28/22 20:43 Pulse Oximetry 100 02/28/22 20:43 Oxygen Delivery Room Air 02/28/22 20:43 Discharge Plan Discharge Clinical Impression: Finger sprain Patient Disposition: Home, Self-Care Condition: Stable Instructions: Finger Sprain (ED) Prescriptions: No Action acetaminophen [Acetaminophen Pain Relief] 500 mg Tablet 500 mg PO Q6H PRN (Reason: Pain, Mild) buspirone 10 mg Tablet 20 mg PO DAILY divalproex 500 mg Tablet Extended Release 24 Hr 1,000 mg PO DAILY benzonatate 100 mg Capsule 100 mg PO BID PRN (Reason: Cough) Qty: 20 0RF guaifenesin [Mucus Relief ER] 600 mg Tablet Extended Release 12hr 600 mg PO Q12HR Qty: 20 0RF albuterol sulfate 90 mcg/actuation HFA aerosol inhaler 1 inh inhalation QID PRN (Reason: shortness of breath or wheezing) Qty: 6.7 0RF dexamethasone 6 mg tablet 6 mg PO DAILY Qty: 6 0RF ibuprofen 800 mg tablet 800 mg PO TID PRN (Reason: pain) Qty: 60 0RF Follow-up/Referrals: Flora,Sheyla Bonilla MD [Primary Care Provider] - 03/04/22 Time of Disposition: 21:19
[2022-02-28] MEDS: IBUPROFEN 600 MG TABLET PO (21:33)
[2022-02-28 21:40] VITALS: BP 154/76; PULSE 71; RESP 18; O2SAT 99
== END 2022-02-28 21:41 | disposition home or self-care (01) ==
PROVIDERS: Emergency Provider Emergency Medicine; PCP Family Medicine
DX: S63.612A Unspecified sprain of right middle finger, initial encounter (principal); S63.614A Unspecified sprain of right ring finger, initial encounter; X50.0XXA Overexertion from strenuous movement or load, initial encounter
CPT/HCPCS: 73130; 99283; A9270

== ENCOUNTER 2022-03-16 00:28 | Emergency (ER) | payer OTHER, SELFPAY ==
--- NOTE | ~2022-03-16 | XR_ITS ---
XR hand RT min 3V 03/16/2022 01:27 INDICATION: Right hand pain PROCEDURE: 3 views right hand COMPARISON: Comparison to multiple prior studies sequentially, with oldest reviewed study dated 02/28. FINDINGS: Fracture, dislocation or subluxation is not identified. The soft tissues appear within norm al limits. No foreign bodies are identified. IMPRESSION: 1: NO ACUTE BONE OR JOINT ABNORMALITY IDENTIFIED. Reviewed, dictated and finalized at location A.
[2022-03-16 00:34] VITALS: BP 146/76; PULSE 73; RESP 18; TEMP 36.9; O2SAT 99
--- NOTE | 2022-03-16 00:44 | ED.UPPEXIN ---
HPI - Extremity Injury (Upper) General Chief Complaint: Extremity Injury, Upper Stated Complaint: hand pain and swelling Time Seen by Provider: 03/16/22 00:39 History of Present Illness HPI narrative: 41-year-old male presents the emergency room with ongoing right hand pain for approximately 4 weeks. Patient states he hyperextended his second third and fourth fingers while attempting to rosemary a piece of furniture. Patient states he was seen in the emergency room 2 weeks ago for this complaint and was told he had finger sprains. He was also told to return to the emergency room if his pain did not resolve. Patient has not followed up with his primary care physician. Patient states his right hand has been swelling. Related Data Home Medications Medication Instructions Recorded Confirmed acetaminophen 500 mg tablet 500 mg PO Q6H PRN Pain, Mild 05/09/21 05/09/21 (Acetaminophen Pain Relief) buspirone 10 mg tablet 20 mg PO DAILY 05/09/21 05/09/21 divalproex 500 mg tablet,extended 1,000 mg PO DAILY 05/09/21 05/09/21 release 24 hr Allergies Allergy/AdvReac Type Severity Reaction Status Date / Time No Known Allergies Allergy Unknown Verified 03/16/22 00:52 Review of Systems Review of Systems: CONSTITUTIONAL: Denies fever, chills, or sweats. EYES: Denies visual changes, redness, or discharge. ENT: Denies rhinorrhea, congestion, sore throat, or otalgia. CARDIOVASCULAR: Denies chest pain, palpitations, or edema. RESPIRATORY: Denies cough or dyspnea. GASTROINTESTINAL: Denies abdominal pain, nausea, vomiting, or diarrhea. GENITOURINARY: Denies dysuria or hematuria. SKIN: Denies rash or itching. MUSCULOSKELETAL: Reports right hand pain NEUROLOGIC: Denies headache, numbness, dizziness, or weakness. PSYCHIATRIC: Denies anxiety or depression. PMFSH Past Medical History Medical History History of seizures Social History Social History Smoking status: Never smoker Alcohol intake: never Substance use: never Gender identity (if verbalized by the patient): Male Spiritual care concerns: No Exam Narrative: GENERAL: Well-appearing, well-nourished, and in no acute distress. HEAD: Normocephalic, atraumatic. EYES: PERRLA and EOMI. CHEST: Clear to auscultation. No respiratory distress. No wheezes rales or rhonchi HEART: Regular rate and rhythm. No murmur heard. Normal peripheral pulses. EXTREMITIES: Right hand: No soft tissue swelling or erythema, full range of motion of all of his fingers, no joint laxity noted, neurovascular is intact distally, orthotist prosthetist strength is 5 out of 5 no ecchymosis noted SKIN: Warm, dry, no rash. NEURO: No focal deficits. Alert and oriented x3. PSYCH: Normal mood and affect. Course Vital Signs Vital signs: Vital Signs Temperature 36.9 C 03/16/22 00:34 Pulse Rate 73 03/16/22 00:34 Respiratory Rate 18 03/16/22 00:34 Blood Pressure 146/76 H 03/16/22 00:34 Pulse Oximetry 99 03/16/22 00:34 Oxygen Delivery Room Air 03/16/22 00:34 Temperature 36.9 C 03/16/22 00:34 Pulse Rate 73 03/16/22 00:34 Respiratory Rate 18 03/16/22 00:34 Blood Pressure 146/76 H 03/16/22 00:34 Pulse Oximetry 99 03/16/22 00:34 Oxygen Delivery Room Air 03/16/22 00:34 MDM - Extremity Injury (Upper) Imaging Data My impression: No acute bony abnormality Discharge Plan Discharge Clinical Impression: Finger sprain Patient Disposition: Home, Self-Care Condition: Stable Instructions: Antibiotic Form Additional Instructions: Continue taking ibuprofen and naproxen as needed for discomfort. Follow-up with your primary care physician. Prescriptions: No Action acetaminophen [Acetaminophen Pain Relief] 500 mg Tablet 500 mg PO Q6H PRN (Reason: Pain, Mild) buspirone 10 mg Tablet 20 mg PO DAILY divalproex 500 mg Tablet Extended Release 24 Hr
[2022-03-16] MEDS: NAPROXEN 500 MG TABLET PO (01:46)
[2022-03-16 01:59] VITALS: BP 121/78; PULSE 77; RESP 18; O2SAT 100
== END 2022-03-16 01:48 | disposition home or self-care (01) ==
PROVIDERS: Emergency Provider Nurse Practitioner Family; PCP Family Medicine
DX: S63.619D Unspecified sprain of unspecified finger, subsequent encounter (principal); X50.9XXD Other and unspecified overexertion or strenuous movements or postures, subsequent encounter
CPT/HCPCS: 73130; 99283; A9270

== ENCOUNTER 2022-05-18 08:14 | Emergency (ER) | payer OTHER, SELFPAY ==
--- NOTE | 2022-05-18 08:18 | ED.MALEGU ---
HPI - Male Genitourinary General Chief complaint: Urogenital-Male Stated complaint: STD test Time Seen by Provider: 05/18/22 08:18 Source: patient Mode of arrival: ambulatory Limitations: no limitations History of Present Illness HPI Narrative: Mr. Mcginnis is a 41-year-old male patient presenting to the clinic today for STD testing. He reports he girlfriend was tested and had an urinary tract infection and a yeast infection. He reports some itching at the end of the urethra and tenderness to palpation. He denies any dysuria or penile discharge. Related Data Home Medications Medication Instructions Recorded Confirmed acetaminophen 500 mg tablet 500 mg PO Q6H PRN Pain, Mild 05/09/21 05/18/22 (Acetaminophen Pain Relief) buspirone 10 mg tablet 20 mg PO DAILY 05/09/21 05/18/22 divalproex 500 mg tablet,extended 1,000 mg PO DAILY 05/09/21 05/18/22 release 24 hr Allergies Allergy/AdvReac Type Severity Reaction Status Date / Time No Known Allergies Allergy Unknown Verified 05/18/22 08:28 Review of Systems Review of Systems: Pertinent positives per HPI. Patient denies any fever, chills, rash, headache, visual changes, dizziness, cough, runny nose, sore throat, shortness of breath, chest pain, palpitations, nausea, vomiting, diarrhea, constipation, abdominal pain, or any urinary issues. PMFSH Past Medical History Medical History History of seizures Social History Social History Smoking status: Never smoker Alcohol intake: never Substance use: never Gender identity (if verbalized by the patient): Male Spiritual care concerns: No Comments At the time of my signature, I reviewed and agree with the nursing past medical, surgical, social, and family history. There is no relevant family history pertinent to the patient complaint. Exam Narrative: General: Well-developed, well nourished, in no apparent distress. Head: Normocephalic, atraumatic. Cardio: Regular rate and rhythm, s1 and s2 normal, no murmur appreciated. Resp: Clear to auscultation bilaterally, no rhonchi, rales, wheezing or rubs. Abdomen: Soft, pliable, bowel sounds present in all quadrants, non-tender to palpation, no organomegly, no CVAT tenderness. : Normal externa male genitalia, no lesions or masses, no penile discharge, bilateral testes descended without mass or lesion, urethra midline- no redness or swelling. Course Course Emergency Course: Portions of this record may have been created with voice recognition software. Level of Care: Express Care Visit Vital Signs Vital signs: Vital signs reviewed MDM - Male Genitourinary MDM Narrative Medical decision making narrative: At the time of visit patient is resting comfortably on exam table. Dirty and clean urine were collected in the clinic today. UA was negative for any signs of infection or blood. He did have a trace of protein in his urine. We will send dirty urines off to test for trichomonas, chlamydia, and gonorrhea. He reports that his had a yeast infection so I will go ahead and treat him for candidal urethritis. Prescription for Diflucan was sent to the pharmacy and supportive measures were discussed with the patient he voiced understanding of discharge instructions Differential Diagnosis Differential diagnosis: Likely urinary tract infection, urethritis, epididymitis and other (STI) Discharge Plan Discharge Clinical Impression: Candidal urethritis Patient Disposition: Home, Self-Care Condition: Stable Instructions: Antibiotic Form, Nonspecific Urethritis in Men (ED) Additional Instructions: Take Diflucan as prescribed U/A negative for any signs of infection. Will send dirty urine for gonorrhea, chlamydia, and trichomonas testing Increase fluids and stay well-hydrated Avoid any sexual intercourse until you get lab results b
[2022-05-18 08:21] VITALS: BP 145/78; PULSE 83; RESP 18; TEMP 36.1; O2SAT 100
== END 2022-05-18 08:47 | disposition home or self-care (01) ==
PROVIDERS: Emergency Provider Nurse Practitioner Family; PCP Family Medicine
DX: B37.41 Candidal cystitis and urethritis (principal); A74.9 Chlamydial infection, unspecified; G40.909 Epilepsy, unspecified, not intractable, without status epilepticus
CPT/HCPCS: 81003; 87491; 87591; 87661; 99213; G0463

== ENCOUNTER 2022-08-06 11:56 | Emergency (ER) | payer OTHER, SELFPAY ==
[2022-08-06 12:12] VITALS: BP 146/63; PULSE 89; RESP 18; TEMP 37.8; O2SAT 100
--- NOTE | 2022-08-06 12:57 | ED.URI ---
HPI - URI/Sore Throat General Chief Complaint: Upper Respiratory Infection Stated Complaint: chills/madrid/sore throat Time Seen by Provider: 08/06/22 12:47 Source: patient Mode of arrival: ambulatory Limitations: no limitations History of Present Illness HPI Narrative: patient presents today complaining of a 1 day history of cough, body aches, sore throat, chills, headache. Denies fever or any additional symptoms. He has been taking Tylenol and using cough drops without relief. He currently rates his pain 10. He has had his flu vaccine and COVID vaccine. Related Data Home Medications Medication Instructions Recorded Confirmed buspirone 10 mg tablet 20 mg PO DAILY 05/09/21 08/06/22 divalproex 500 mg tablet,extended 1,000 mg PO DAILY 05/09/21 08/06/22 release 24 hr Allergies Allergy/AdvReac Type Severity Reaction Status Date / Time No Known Allergies Allergy Unknown Verified 05/18/22 08:28 Review of Systems Review of Systems: CONSTITUTIONAL: Denies fever, or sweats.+ Body aches, chills EYES: Denies visual changes, redness, or discharge. ENT: Denies rhinorrhea, congestion, or otalgia.+ sore throat CARDIOVASCULAR: Denies chest pain, palpitations, or edema. RESPIRATORY: Denies dyspnea.+ cough GASTROINTESTINAL: Denies abdominal pain, nausea, vomiting, or diarrhea. GENITOURINARY: Denies dysuria or hematuria. SKIN: Denies rash, itching, or wounds. MUSCULOSKELETAL: Denies back pain, joint pain, or myalgia. NEUROLOGIC: Denies numbness, tingling, or weakness.+ headache PSYCH: Denies depression or anxiety. [facility] Past Medical History Medical History History of seizures Social History Social History Smoking status: Never smoker Alcohol intake: never Substance use: never Gender identity (if verbalized by the patient): Male Spiritual care concerns: No Comments At time of signature, I have reviewed and agree with nursing past medical, surgical, social and family history unless otherwise noted. Please see nursing chart for further information. There is no relevant family history pertinent to the presenting complaint Exam Narrative: GENERAL: Mildly ill-appearing, well-nourished, and in no acute distress. HEAD: Normocephalic, atraumatic. EYES: EOMI. No redness or drainage. Conjunctivae normal. ENT: Mucous membranes pink and moist. Nares clear. No rhinorrhea. TMs normal bilaterally. Throat normal. Uvula midline. NECK: Normal AROM. Supple. No lymphadenopathy. CHEST: No respiratory distress. Clear to auscultation. HEART: Regular rate and rhythm. No murmur appreciated. Normal peripheral pulses. EXTREMITIES: Normal range of motion. No edema. SKIN: Warm, dry, no rash. Capillary refill normal. Normal skin turgor. NEURO: No focal deficits. Alert and oriented x3. Gait steady. PSYCH: Normal affect. No signs of depression or anxiety. Course Course Level of Care: Express Care Visit Vital Signs Vital signs: Vital Signs Temperature 100.1 F H 08/06/22 12:12 Pulse Rate 89 08/06/22 12:12 Respiratory Rate 18 08/06/22 12:12 Blood Pressure 146/63 H 08/06/22 12:12 Pulse Oximetry 100 08/06/22 12:12 Oxygen Delivery Room Air 08/06/22 12:12 Temperature 100.1 F H 08/06/22 12:12 Pulse Rate 89 08/06/22 12:12 Respiratory Rate 18 08/06/22 12:12 Blood Pressure 146/63 H 08/06/22 12:12 Pulse Oximetry 100 08/06/22 12:12 Oxygen Delivery Room Air 08/06/22 12:12 Reviewed. Pt has been instructed to follow up with his PCP regarding his elevated blood pressure today. MDM - URI/Sore Throat MDM Narrative Medical decision making narrative: declines COVID-19 test Differential Diagnosis Differential diagnosis: Likely upper respiratory infection, viral infection, influenza and other ( COVID-19) Lab Data Attestation: I reviewed the patient's lab results.
== END 2022-08-06 13:04 | disposition home or self-care (01) ==
PROVIDERS: Emergency Provider Nurse Practitioner; PCP Family Medicine
DX: B34.9 Viral infection, unspecified (principal)
CPT/HCPCS: 87804; 99213; G0463

== ENCOUNTER 2022-08-08 09:14 | Emergency (ER) | payer OTHER, SELFPAY ==
--- NOTE | ~2022-08-08 | XR_ITS ---
EXAMINATION: XR chest 2V DATE: 08/08/2022 10:21 INDICATION: Productive cough. TECHNIQUE: Frontal and lateral views of the chest were obtained. COMPARISON: Chest 2 views 08/05/2021, chest CT 05/08/21 FINDINGS: The chest demonstrates clear lungs without pneumonia, pleural effusion, or pneumothorax. Th e heart size is normal. IMPRESSION: 1. No acute cardiopulmonary disease. Reviewed, dictated and finalized at location A.
[2022-08-08 09:21] VITALS: BP 136/49; PULSE 79; RESP 16; TEMP 35.8; O2SAT 99
--- NOTE | 2022-08-08 10:12 | ED.URI ---
HPI - URI/Sore Throat General Chief Complaint: Upper Respiratory Infection Stated Complaint: Left flank pain; positive for covid Time Seen by Provider: 08/08/22 09:45 Source: patient Mode of arrival: ambulatory Limitations: no limitations History of Present Illness HPI Narrative: Patient presents today complaining of 4 day history of cough, body aches, congestion, sweats. He has no experiencing some left lower back pain as well and occasional shortness of breath. Patient was seen 2 days ago at [facility] and tested for influenza which was negative. He declined a COVID-19 test at that time. He did a home COVID test this morning which was positive. He has been using TheraFlu, Tylenol, and Robitussin with some mild relief. He is requesting a chest x-ray to check for COVID-19 pneumonia, as he had a year ago when he had COVID. Related Data Home Medications Medication Instructions Recorded Confirmed divalproex 500 mg tablet,extended 1,000 mg PO DAILY 05/09/21 08/06/22 release 24 hr Allergies Allergy/AdvReac Type Severity Reaction Status Date / Time No Known Allergies Allergy Unknown Verified 08/08/22 10:04 Review of Systems Review of Systems: CONSTITUTIONAL: Denies fever, chills+ Body aches, sweats EYES: Denies visual changes, redness, or discharge. ENT: Denies rhinorrhea, sore throat, or otalgia.+ congestion CARDIOVASCULAR: Denies chest pain, palpitations, or edema. RESPIRATORY: + cough, occasional shortness of breath. GASTROINTESTINAL: Denies abdominal pain, nausea, vomiting, or diarrhea. GENITOURINARY: Denies dysuria or hematuria. SKIN: Denies rash, itching, or wounds. MUSCULOSKELETAL: Denies joint pain, or myalgia.+ left low back pain NEUROLOGIC: Denies headache, numbness, tingling, or weakness. PSYCH: Denies depression or anxiety. [facility] Past Medical History Medical History History of seizures Social History Social History Smoking status: Never smoker Alcohol intake: never Substance use: never Gender identity (if verbalized by the patient): Male Spiritual care concerns: No Comments At time of signature, I have reviewed and agree with nursing past medical, surgical, social and family history unless otherwise noted. Please see nursing chart for further information. There is no relevant family history pertinent to the presenting complaint Exam Narrative: GENERAL: Well-appearing, well-nourished, and in no acute distress. HEAD: Normocephalic, atraumatic. EYES: EOMI. No redness or drainage. Conjunctivae normal. ENT: Mucous membranes pink and moist. Nares clear. No rhinorrhea. TMs normal bilaterally. Throat normal. Uvula midline. NECK: Normal AROM. Supple. No lymphadenopathy. CHEST: No respiratory distress. Clear to auscultation. HEART: Regular rate and rhythm. No murmur appreciated. Normal peripheral pulses. EXTREMITIES: Normal range of motion. No edema. SKIN: Warm, dry, no rash. Capillary refill normal. Normal skin turgor. NEURO: No focal deficits. Alert and oriented x3. Gait steady. PSYCH: Normal affect. No signs of depression or anxiety. Course Course Level of Care: Express Care Visit Vital Signs Vital signs: Vital Signs Temperature 96.4 F L 08/08/22 09:21 Pulse Rate 79 08/08/22 09:21 Respiratory Rate 16 08/08/22 09:21 Blood Pressure 136/49 L 08/08/22 09:21 Pulse Oximetry 99 08/08/22 09:21 Oxygen Delivery Room Air 08/08/22 09:21 Temperature 96.4 F L 08/08/22 09:21 Pulse Rate 79 08/08/22 09:21 Respiratory Rate 16 08/08/22 09:21 Blood Pressure 136/49 L 08/08/22 09:21 Pulse Oximetry 99 08/08/22 09:21 Oxygen Delivery Room Air 08/08/22 09:21 Reviewed. Pt has been instructed to follow up with his PCP regarding his elevated blood pressure today. MDM - URI/Sore Throat Differential Diagnosis Differential di
== END 2022-08-08 10:52 | disposition home or self-care (01) ==
PROVIDERS: Emergency Provider Nurse Practitioner; PCP Family Medicine
DX: U07.1 COVID-19 (principal); G40.909 Epilepsy, unspecified, not intractable, without status epilepticus
CPT/HCPCS: 71046; 99213; G0463

== ENCOUNTER 2022-11-01 10:19 | Emergency (ER) | payer OTHER, SELFPAY ==
[2022-11-01 10:29] VITALS: BP 143/70; PULSE 70; RESP 16; TEMP 36.6; O2SAT 99
--- NOTE | 2022-11-01 10:59 | ED.EYEPROB ---
HPI - Eye Problem General Chief complaint: Eye Problems Stated complaint: rt eye irritated Time Seen by Provider: 11/01/22 10:59 Source: patient, RN notes reviewed and old records reviewed Mode of arrival: ambulatory Limitations: no limitations History of Present Illness HPI Narrative: 42-year-old male presents to the [facility] with complaints of right eye upper lid discomfort. Patient reports that on Thursday he got Virex in his eyes, was flushed right away at work Now has an inflamed right upper eyelid. Reports intermittent blurry vision, nothing currently. No drainage noted. No purulent drainage. No significant change in vision Did not seek medical treatment at that time just flushed his eye really well Related Data Home Medications Medication Instructions Recorded Confirmed divalproex 500 mg tablet,extended 1,000 mg PO DAILY 05/09/21 11/01/22 release 24 hr Allergies Allergy/AdvReac Type Severity Reaction Status Date / Time No Known Allergies Allergy Unknown Verified 11/01/22 10:31 Review of Systems Review of Systems: All systems reviewed & are unremarkable except as noted in HPI and below Constitutional: Constitutional: Reports no additional constitutional complaints Eyes: Eyes: Reports as per HPI, Denies change in vision and Denies photophobia ENT: Reports system reviewed and no additional complaints, except as documented Cardiovascular: Cardiovascular: Reports no additional cardiovascular complaints, Denies chest pain and Denies dyspnea Respiratory: Respiratory: Reports no additional respiratory complaints, Denies chest congestion, Denies cough and Denies dyspnea Gastrointestinal: Gastrointestinal: Reports no additional gastrointestinal complaints, Denies abdominal pain, Denies nausea and Denies vomiting Musculoskeletal: Musculoskeletal: Reports no additional musculoskeletal complaints Integumentary/Breasts: Skin/Breast: Reports system reviewed and no additional complaints, except as docu Neurologic: Reports system reviewed and no additional complaints, except as documented Psychiatric: Psychiatric: Reports no additional psychiatric complaints Allergic/Immunologic: Allergic/Immunologic: Reports no additional allergic/immunologic complaints PMFSH Past Medical History Medical History History of seizures Social History Social History Smoking status: Never smoker Alcohol intake: never Substance use: never Gender identity (if verbalized by the patient): Male Spiritual care concerns: No Comments At the time of my signature, I reviewed and agree with the nursing past medical, surgical, social, and family history. There is no relevant family history pertinent to the patient complaint. Exam Const: General: cooperative, healthy appearing, comfortable, no acute distress, well developed, alert and well nourished Nutritional Appearance: well nourished Orientation/consciousness: patient oriented x3 Limitations: no limitations HENMT: Head: normal to inspection Ears: hearing grossly normal bilaterally and external ears normal Face/Nose/Sinus: Normal external nose present, Normal nares present, Normal nasal mucous membranes and turbinates present and normal facial exam Face and sinus: normal facial exam Mouth: Yes Normal oral and palatal mucosa present, Yes lip normal and Yes moist mucous membranes Throat: posterior oropharynx normal and uvula midline Eyes: General: appearance normal, both eyes and all related structures Alignment and Position: alignment normal Periorbital: periorbital findings normal Eyelids: eyelid abnormality right upper eyelid inflamed cyst internal lid and tenderness; without erythema, without foreign bodies, without lacerations, no crusting or scaling of lid margins and with no swelling Conjunctivae: conjunctivae normal Pupils: Equal, round and reactive pupils p
== END 2022-11-01 11:18 | disposition home or self-care (01) ==
PROVIDERS: Emergency Provider Nurse Practitioner; PCP Family Medicine
DX: H00.011 Hordeolum externum right upper eyelid (principal); G40.909 Epilepsy, unspecified, not intractable, without status epilepticus
CPT/HCPCS: 99213; G0463

== ENCOUNTER 2023-07-07 05:37 | Emergency (ER) | payer OTHER, SELFPAY ==
[2023-07-07 05:42] VITALS: BP 149/84; PULSE 74; RESP 16; TEMP 36.8; O2SAT 100
[2023-07-07 06:31] VITALS: BP 144/58; PULSE 64; RESP 18; O2SAT 100
[2023-07-07 06:55] LABS: Strep Group A RT-PCR DETECTED (Negative)
[2023-07-07 07:07] LABS: Influenza A QL RT-PCR Negative (Negative); Influenza B QL RT-PCR Negative (Negative); RSV RNA, RT-PCR Negative (Negative); SARS-CoV-2 RNA PCR Negative (Negative)
[2023-07-07] MEDS: KETOROLAC 30 MG/ML VIAL (*BKC) IM (07:15)
[2023-07-07] MEDS: AMOXICILLIN 500 MG CAPSULE PO (07:15)
--- NOTE | 2023-07-07 07:31 | ED.URI ---
HPI - URI/Sore Throat General Chief Complaint: Upper Respiratory Infection Stated Complaint: sore throat Time Seen by Provider: 07/07/23 06:57 History of Present Illness HPI Narrative: Patient reports exposure to COVID, he has been having headache and sore throat past few days. Related Data Home Medications Medication Instructions Recorded Confirmed divalproex 500 mg tablet,extended 1,000 mg PO DAILY 05/09/21 11/01/22 release 24 hr Allergies Allergy/AdvReac Type Severity Reaction Status Date / Time No Known Allergies Allergy Unknown Verified 07/07/23 06:30 Review of Systems Review of Systems: All systems reviewed & are unremarkable except as noted in HPI and below PMFSH Past Medical History Medical History History of seizures Social History Social History Smoking status: Never smoker Alcohol intake: never Substance use: never Gender identity (if verbalized by the patient): Male Spiritual care concerns: No Exam Narrative: EXAMINATION OF ORGAN SYSTEMS/BODY AREAS: Constitutional: Vital signs per nursing GENERAL:[No acute distress, non-toxic appearing.] HEAD: Normal with no signs of head trauma. EYES: EOMI, conjunctiva normal ENT: Hearing grossly intact LUNGS: Nonlabored breathing. HEART: [Regular rate and rhythm] EXT: Normal range of motion SKIN: [No rashes or lesions.] NEURO: [Alert with normal speech/gait] PSYCH: Normal affect Course Vital Signs Vital signs: Vital Signs Temperature 98.3 F 07/07/23 05:42 Pulse Rate 74 07/07/23 05:42 Respiratory Rate 16 07/07/23 05:42 Blood Pressure 149/84 H 07/07/23 05:42 Pulse Oximetry 100 07/07/23 05:42 Oxygen Delivery Room Air 07/07/23 05:42 Temperature 98.3 F 07/07/23 05:42 Pulse Rate 64 07/07/23 06:31 Respiratory Rate 18 07/07/23 06:31 Blood Pressure 144/58 H 07/07/23 06:31 Pulse Oximetry 100 07/07/23 06:31 Oxygen Delivery Room Air 07/07/23 05:42 MDM - URI/Sore Throat MDM Narrative Medical decision making narrative: ED COURSE AND MEDICAL DECISION MAKING: This 42 year old patient presents with sore throat. Overall well-appearing here, normal speech. Patient is treated symptomatically with Toradol. Swabs positive for strep, he is started on antibiotics, discharged home in stable condition with expectant management. Return precautions were provided. Lab Data Labs: Lab Results 07/07/23 Range/Units 06:13 Influenza A (RT-PCR) Negative (Negative) Influenza B (RT-PCR) Negative (Negative) RSV (RT-PCR) Negative (Negative) SARS-CoV-2 RNA (RT-PCR) Negative (Negative) Group A Strep (PCR) Detected A (Negative) Discharge Plan Discharge Clinical Impression: Acute streptococcal pharyngitis Patient Disposition: Home, Self-Care Condition: Stable Instructions: Antibiotic Form, Strep Throat (ED) Additional Instructions: Please follow up with your doctor and take the antibiotics; come back if you feel worse. Prescriptions: New amoxicillin 500 mg capsule 500 mg PO Q12H Qty: 20 0RF ibuprofen 600 mg tablet 600 mg PO TID PRN (Reason: fever or pain) Qty: 30 0RF No Action erythromycin 5 mg/gram (0.5 %) ointment 0.5 inch EACH EYE TID Qty: 3.5 0RF divalproex 500 mg Tablet Extended Release 24 Hr 1,000 mg PO DAILY Follow-up/Referrals: Brennon,Sheyla Bonilla MD [Primary Care Provider] - 2 Days Stand Alone Forms: Work/School Release IP
== END 2023-07-07 07:20 | disposition home or self-care (01) ==
PROVIDERS: Emergency Medicine; Emergency Provider Emergency Medicine; PCP Family Medicine
DX: J02.0 Streptococcal pharyngitis (principal); Z20.822 Contact with and (suspected) exposure to COVID-19
CPT/HCPCS: 87637; 87651; 96372; 99283; A9270; J1885

== ENCOUNTER 2023-08-02 14:18 | Emergency (ER) | payer OTHER, SELFPAY ==
--- NOTE | ~2023-08-02 | XR_ITS ---
EXAM: XR wrist RT min 3V DATE: 08/02/2023 14:38 HISTORY: HYPER-EXTENDED WRIST WHILE LIFTING WEIGHTS . COMPARISON: 03/16/2022. FINDINGS: Normal mineralization. No fracture or dislocation. No lytic or blastic lesion. Mild degene rative changes. No erosion or periosteal change. Soft tissues within normal limits. IMPRESSION: No acute osseous finding in the right wrist. Reviewed, dictated and finalized at location K.
[2023-08-02 14:28] VITALS: BP 144/57; PULSE 71; RESP 14; TEMP 36.6; O2SAT 100
--- NOTE | 2023-08-02 15:12 | ED.EXTPRO ---
HPI - Extremity Problem General Chief complaint: Extremity Injury, Upper Stated complaint: right wrist pain Time Seen by Provider: 08/02/23 14:45 Source: patient and RN notes reviewed Mode of arrival: ambulatory Limitations: no limitations History of Present Illness HPI Narrative: Patient presents today with right wrist pain x1 month. States he was lifting weights at the gym that may have been too heavy. States his wrist hyperextended causing pain. Denies numbness or tingling. Currently rates his pain 9/10. He has tried Aleve, Tylenol, ibuprofen, and Percocet without relief. Pain increases with movement. Related Data Home Medications Medication Instructions Recorded Confirmed divalproex 500 mg tablet,extended 500 mg PO BID 05/09/21 08/02/23 release 24 hr Allergies Allergy/AdvReac Type Severity Reaction Status Date / Time No Known Allergies Allergy Unknown Verified 08/02/23 14:20 Review of Systems Review of Systems: CONSTITUTIONAL: Denies body aches, fever, chills, or sweats. EYES: Denies visual changes, redness, or discharge. ENT: Denies rhinorrhea, congestion, sore throat, or otalgia. CARDIOVASCULAR: Denies chest pain, palpitations, or edema. RESPIRATORY: Denies cough or dyspnea. GASTROINTESTINAL: Denies abdominal pain, nausea, vomiting, or diarrhea. GENITOURINARY: Denies dysuria or hematuria. SKIN: Denies rash, itching, or wounds. MUSCULOSKELETAL: Denies back pain, or myalgia.+ right wrist pain NEUROLOGIC: Denies headache, numbness, tingling, or weakness. PSYCH: Denies depression or anxiety. PMFSH Past Medical History Medical History History of seizures Social History Social History Smoking status: Never smoker Alcohol intake: never Substance use: never Gender identity (if verbalized by the patient): Male Spiritual care concerns: No Comments At time of signature, I have reviewed and agree with nursing past medical, surgical, social and family history unless otherwise noted. Please see nursing chart for further information. There is no relevant family history pertinent to the presenting complaint Exam Narrative: GENERAL: Well-appearing, well-nourished, and in no acute distress. HEAD: Normocephalic, atraumatic. EYES: EOMI. No redness or drainage. Conjunctivae normal. ENT: Mucous membranes pink and moist. NECK: Normal AROM. CHEST: No respiratory distress. EXTREMITIES: right wrist: Tenderness to the volar aspect of the distal radius. Pain with full extension. No edema, ecchymosis, or erythema noted. Distal sensation intact. Capillary refill normal. Radial pulse normal. No snuffbox tenderness. SKIN: Warm, dry, no rash. Capillary refill normal. Normal skin turgor. NEURO: No focal deficits. Alert and oriented x3. Gait steady. PSYCH: Normal affect. No signs of depression or anxiety. Course Course Level of Care: Express Care Visit Vital Signs Vital signs: Vital Signs Temperature 97.9 F 08/02/23 14:28 Pulse Rate 71 08/02/23 14:28 Respiratory Rate 14 08/02/23 14:28 Blood Pressure 144/57 H 08/02/23 14:28 Pulse Oximetry 100 08/02/23 14:28 Oxygen Delivery Room Air 08/02/23 14:28 Temperature 97.9 F 08/02/23 14:28 Pulse Rate 71 08/02/23 14:28 Respiratory Rate 14 08/02/23 14:28 Blood Pressure 144/57 H 08/02/23 14:28 Pulse Oximetry 100 08/02/23 14:28 Oxygen Delivery Room Air 08/02/23 14:28 Reviewed MDM - Extremity (Nontraumatic) MDM Narrative Medical decision making narrative: X-ray negative. Recommend orthopedic follow-up. Also recommend patient does not continue to lift weights as this may be exacerbating his symptoms and prevented healing. No prescription medications indicated at this time. Anticipatory guidance given. Differential Diagnosis Differential diagnosis: Likely other (Wrist sprain
== END 2023-08-02 15:18 | disposition home or self-care (01) ==
PROVIDERS: Emergency Provider Nurse Practitioner; PCP Family Medicine
DX: S69.91XA Unspecified injury of right wrist, hand and finger(s), initial encounter (principal); X50.0XXA Overexertion from strenuous movement or load, initial encounter; Y93.B3 Activity, free weights; Y92.9 Unspecified place or not applicable; G40.909 Epilepsy, unspecified, not intractable, without status epilepticus
CPT/HCPCS: 73110; 99213; G0463

== ENCOUNTER 2023-09-02 07:30 | Outpatient (RCR) | payer OTHER, SELFPAY ==
--- NOTE | 2023-08-14 08:38 | OTOPEVAL1 ---
Assessment and note entered by TRENTON Dukes/Irene, CHT Evaluation Information Diagnosis Right wrist pain Subjective Information Patient reports experiencing a wrist hyperextension injury about a month and a half ago when he was bench pressing. X-rays are negative for any osseus abnormality. He continues to have pain and swelling in the wrist and forearm. Reports intermittent numbness in the fingertips. He presents today in a wrist immobilizer. 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 Reported Pain Level Pain Score 4: Self Report Assessment OT Clinical Summary Patient referred to OT with right wrist pain from an injury sustained about a month and a half ago when he was bench pressing and his wrist was suddenly hyperextended while holding onto the barbell. Provocative testing today consistent with TFCC injury. 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 Issued active ROM HEP for patient to complete to his tolerance. Plan for continued follow up to progress as tolerated. Plan of Care Interventions Therapeutic Exercise,Manual Therapy,Therapeutic Activities,Paraffin OT Services Indicated Yes Treatment Frequency and 1x/week for 6 weeks Duration These treatments will address the objective and functional deficits as defined above. The patient will be advanced safely and appropriately in order for the patient to progress towards his/her prior level of function. Additional exercises will be introduced and as well as a comprehensive home exercise program upon discharge, if needed, ?to ensure carryover of functional gains achieved in the clinic. This treatment plan has been reviewed and agreement upon by the patient.
--- NOTE | 2023-08-14 08:38 | OPREHPOC ---
Outpatient Therapy Plan of Care This is a Multidisciplinary Plan of Care that may contain components documented by all disciplines (PT, OT, and ST.) OT Problem 1 OT Problem #1 Knowledge Deficit OT Goal 1 Goal 1. Patient to be independent with instructed materials. 2. Patient to adhere to splint wearing schedule. Target Visit 7 OT Problem 2 OT Problem #2 Pain OT Goal 1 Goal 1. Patient to be able to move through full ROM of the forearm and wrist without reports of pain. 2. Patient to be independent with non-medication pain management. Target Visit 7 OT Problem 3 OT Problem #3 Impaired Strength OT Goal 1 Goal 1. Patient to be able to complete wrist strengthening in all planes with a 2 lb. free weight x20 reps without pain. Target Visit 7
--- NOTE | 2023-09-07 10:44 | PCOTNOTE ---
Patient called & cancelled scheduled appointment this date due.
--- NOTE | 2023-09-22 08:43 | OTOPDC ---
Assessment and note entered by TRENTON Dukes/Irene, CHJaclyn Discharge Notification 09/22/23 OT Clinical Summary Patient referred to OT with right wrist pain. He attended 3 therapy sessions. Therapy was unable to decrease his pain. Treatment included use of modalities, ROM, and manual therapy. We were unable to progress treatment due to continuous amounts of pain. He called and cancelled his last visit due to feeling like therapy was not helping. Discharging from therapy with goals not met.
== END 2023-09-22 12:50 | disposition home or self-care (01) ==
LOC: ANHOT 07:30
PROVIDERS: PCP Family Medicine; Visit Provider Orthopaedic Surgery
DX: M25.531 Pain in right wrist (principal)
CPT/HCPCS: 97018; 97035; 97110; 97140; 97166

== ENCOUNTER 2024-01-08 23:18 | Emergency (ER) | payer OTHER, SELFPAY ==
--- NOTE | ~2024-01-08 | CT_ITS ---
EXAMINATION: CT abdomen pelvis w con DATE: 01/09/2024 01:30 INDICATION: Abdominal pain for 2 months TECHNIQUE: Computed tomography (CT) of the abdomen and pelvis was performed with 100 CC Omnipaque 350 intravenous contrast. Automated exposure control and iterative reconstruction technique were brett robertson Exam dose: 854.21 mGy-cm total exam DLP. COMPARISON: 08/04/2019 CT abdomen pelvis FINDINGS: Minimal bilateral gynecomastia. The lung bases are clear. Normal heart size. No pericardial or pleural effusion. The gallbladder is very contracted; this would be better evaluated by ultrasound, if clinically appro priate. No hepatic, splenic, pancreatic, and adrenal or renal space-occupying mass lesion. No urinary tract calculus or hydroureteronephrosis. The urinary bladder and prostate gland are unremarkable. Normal caliber of the abdominal aorta. No intraperitoneal or retroperitoneal or pelvic mass lesion or adenopathy or ascites. Normal appendix. No bowel obstruction, bowel wall thickening, pneumatosis or intraperitoneal free air . Included skeletal structures are unremarkable. IMPRESSION: Contracted gallbladder; this would be better evaluated by gallbladder ultrasound examina tion, if clinically appropriate Normal appendix Reviewed, dictated and finalized at Location A. Reviewed, dictated and finalized at location A. IMPRESSION: Contracted gallbladder; this would be better evaluated by gallblad yessi ultrasound examination, if clinically appropriate Normal appendix
[2024-01-08 23:20] VITALS: BP 138/81; PULSE 72; RESP 18; TEMP 36.6; O2SAT 100
[2024-01-09 00:34] VITALS: BP 170/87; PULSE 73; RESP 13; O2SAT 96
[2024-01-09 00:41] LABS: Appearance Urine Clear (Clear); Bilirubin Urine Negative (Negative); Blood Urine Negative (Negative); Color Urine Yellow (Yellow); Glucose Urine UA Negative (Negative); Ketones Urine Negative (Negative); Leukocyte Esterase Ur Negative LEU/UL (Negative); Nitrate Urine Negative (Negative); Protein Urine Negative (Negative); Specific Grav Ur 1.023 (1.001-1.035); Urobilinogen Urine 0.2 mg/dL (<2.0); pH Urine 5.5 (5.0-9.0)
[2024-01-09 00:50] LABS: Alanine Aminotransferase 23 U/L (6-50); Albumin Level 4.4 g/dL (3.5-5.1); Alkaline Phosphatase 52 U/L (38-126); Anion Gap 7 mmol/L (4-12); Aspartate Amino Transferase 43 U/L (17-59); Bilirubin,Total 0.4 mg/dL (0.2-1.3); Blood Urea Nitrogen 17 mg/dL (9-20); Calcium 9.3 mg/dL (8.4-10.2); Carbon Dioxide 26 mmol/L (22-30); Chloride 103 mmol/L (98-107); Estimated CRCL calculation 107 ml/min; Estimated Glomerular Filt Rate > 60; Glucose 114 mg/dL (65-110); Lipase 114 U/L (23-300); Sodium 136 mmol/L (137-145)
[2024-01-09 00:57] LABS: Add Urine Microscopic? NO
[2024-01-09 01:00] VITALS: BP 166/98; PULSE 69; RESP 15; O2SAT 97
[2024-01-09 01:10] LABS: Basophils Percent Auto 0.8 % (0.2-1.2); Eosinophils Absolute Auto 0.2 K/mm3 (0-0.3); Eosinophils Percent Auto 3.7 % (0-4.4); Hematocrit 39.7 % (42.0-52.0); Hemoglobin 13.1 g/dL (14.0-18.0); Immature Granulocyte Absolute 0.01 K/mm3 (0.00-0.031); Immature Granulocyte Percent A 0.2 % (0-0.5); Lymphocytes Absolute Auto 3.27 K/mm3 (0.9-3.2); Lymphocytes Percent Auto 64.5 % (18.3-44.2); Mean Corpuscular Hemoglobin 29.7 pg (26-34); Monocytes Absolute Auto 0.3 K/mm3 (0.1-0.6); Monocytes Percent Auto 5.1 % (2.6-8.5); Neutrophils Absolute Auto 1.3 K/mm3 (1.3-6.7); Neutrophils Percent Auto 25.7 % (45.5-73.1); Platelet Count Result 191 k/mm3 (150-375); Red Blood Count 4.41 M/mm3 (4.6-6.20); Red Cell Distribution Width 11.9 % (11.5-14.5); White Blood Count 5.1 K/mm3 (4.5-10.0)
[2024-01-09 01:30] LABS: Lactic Acid Reflex 1.1 mmol/L (0.7-2.0)
[2024-01-09] MEDS: MORPHINE SULFATE (*CRX) 4 MG/ML INJ IV PUSH ×2 (02:21→05:07)
[2024-01-09] MEDS: ONDANSETRON INJ 4 MG/2 ML VIAL IV PUSH ×2 (02:21→05:07)
--- NOTE | 2024-01-09 02:23 | ED.ABDPAIN ---
HPI - Abdominal Pain General Chief Complaint: Abdominal Pain Stated Complaint: abd pain, possible hernia Time Seen by Provider: 01/09/24 00:02 History of Present Illness HPI narrative: Patient is a 43-year-old male who presents to the emergency department this evening complaining of left inguinal pain. Patient states that he has had previous hernia repair which he developed secondary to weightlifting. Patient believes it was in the same spot but cannot remember as it was a few years back. Patient is now concerned that the hernia is back or his developing a new hernia. Patient admits that the symptoms started approximately 1 week ago and has been progressively getting worse. Patient denies any recent falls or trauma, denies any urinary symptoms including dysuria or hematuria, denies any history of kidney stones, denies any recent fevers or chills. Patient also denies any scrotal pain, tenderness or swelling. He denies any penile discharge. And has no additional concerns or complaints at this time. There are no other modifying, alleviating, or precipitating factors. Related Data Home Medications Medication Instructions Recorded Confirmed divalproex 500 mg tablet,extended 500 mg PO BID 05/09/21 08/02/23 release 24 hr Allergies Allergy/AdvReac Type Severity Reaction Status Date / Time No Known Allergies Allergy Unknown Verified 08/02/23 14:20 Review of Systems Review of Systems: All systems are reviewed and are negative unless stated otherwise in the HPI. [facility] Past Medical History Medical History History of seizures Social History Social History Smoking status: Never smoker Alcohol intake: never Substance use: never Gender identity (if verbalized by the patient): Male Spiritual care concerns: No Exam Narrative: General: Alert, awake, afebrile, in no acute distress. HEENT: PERRL, no rhinorrhea, no post nasal drip, oropharynx clear. Neck: Trachea midline, no JVD, no lymphadenopathy. Cardiovascular: Regular rate and rhythm, no murmurs, rubs or gallops, no peripheral edema. Respiratory: Clear to auscultation bilaterally, no tachypnea, no wheezing, no rhonchi, no rubs, no respiratory distress. Abdomen: Soft, tenderness to palpation over the left inguinal region, no palpable hernia, nondistended, no rebound, no guarding, no peritoneal signs. Musculoskeletal: No joint swelling or deformity, normal muscle tone. Skin: No rashes or petechia, no signs of infection. Psychiatric: Alert and oriented, normal behavior and judgment for situation. Neurological: Alert and oriented to person, place, and time. Follows all commands. No focal deficits, speech is clear and fluent. Course Vital Signs Vital signs: Vital Signs Temperature 97.9 F 01/08/24 23:20 Pulse Rate 72 01/08/24 23:20 Respiratory Rate 18 01/08/24 23:20 Blood Pressure 138/81 01/08/24 23:20 Pulse Oximetry 100 01/08/24 23:20 Oxygen Delivery Room Air 01/08/24 23:20 Temperature 97.9 F 01/08/24 23:20 Pulse Rate 65 01/09/24 04:00 Respiratory Rate 15 01/09/24 04:00 Blood Pressure 166/88 H 01/09/24 04:00 Pulse Oximetry 96 01/09/24 04:00 Oxygen Delivery Room Air 01/08/24 23:20 MDM - Abdominal Pain MDM Narrative Medical decision making narrative: The patient was evaluated by myself in the emergency department. History is obtained from patient who is an independent historian and physical exam was performed. External medical records were reviewed at this time. IV was established and pertinent tests were ordered. Patient was administered 4 mg of IV morphine for pain and 4 mg of IV Zofran for nausea. Laboratory results obtained revealing no acute process. Lactic acid obtained was noted to be normal. Imaging studies obtained included CT abdomen and pelvis with IV contrast which is currentl
[2024-01-09 02:45] VITALS: BP 154/90; PULSE 69; RESP 18; O2SAT 100
[2024-01-09 04:00] VITALS: BP 166/88; PULSE 65; RESP 15; O2SAT 96
== END 2024-01-09 05:03 | disposition left against medical advice (07) ==
PROVIDERS: Emergency Provider Emergency Medicine; PCP Family Medicine
DX: R10.9 Unspecified abdominal pain (principal)
CPT/HCPCS: 36415; 74177; 80053; 81003; 83605; 83690; 85025; 96374; 96375; 96376; 99284; J2270; J2405; Q9967

== ENCOUNTER 2024-01-12 15:42 | Emergency (ER) | payer OTHER, SELFPAY ==
[2024-01-12 15:44] VITALS: BP 145/85; PULSE 71; RESP 18; TEMP 36.6; O2SAT 100
--- NOTE | 2024-01-12 16:29 | ED.ABDPAIN ---
HPI - Abdominal Pain General Chief Complaint: Abdominal Pain Stated Complaint: L ABDOMINAL PAIN Time Seen by Provider: 01/12/24 15:56 History of Present Illness HPI narrative: patient presenting with months of left lower abdominal pain, he does have a history of a hernia repair in the past, cannot recall the details. Had been seen here recently for the same but left before CT came back. No new changes today. Related Data Home Medications Medication Instructions Recorded Confirmed divalproex 500 mg tablet,extended 500 mg PO BID 05/09/21 08/02/23 release 24 hr Allergies Allergy/AdvReac Type Severity Reaction Status Date / Time No Known Allergies Allergy Unknown Verified 08/02/23 14:20 Review of Systems Review of Systems: CONST: No fever. HEENT: No sore throat C/V: No chest pain RESP: No cough GI: Reports abdominal pain : No dysuria. M/S: No joint pain. SKIN: No rash. NEURO: [No headache or focal numbness or weakness] PSYCH: [No depression] [facility] Past Medical History Medical History History of seizures Social History Social History Smoking status: Never smoker Alcohol intake: never Substance use: never Gender identity (if verbalized by the patient): Male Spiritual care concerns: No Exam Narrative: EXAMINATION OF ORGAN SYSTEMS/BODY AREAS: Constitutional: Vital signs per nursing GENERAL:[No acute distress, non-toxic appearing.] HEAD: Normal with no signs of head trauma. EYES: EOMI, conjunctiva normal ENT: Hearing grossly intact LUNGS: Nonlabored breathing. HEART: [Regular rate and rhythm] ABD: [Soft], [nontender to palpation] EXT: Normal range of motion SKIN: [No rashes or lesions.] NEURO: [Alert and oriented x 3. No gross focal sensory or strength deficits.] PSYCH: Normal affect Course Vital Signs Vital signs: Vital Signs Temperature 98 F 01/12/24 15:44 Pulse Rate 71 01/12/24 15:44 Respiratory Rate 18 01/12/24 15:44 Blood Pressure 145/85 H 01/12/24 15:44 Pulse Oximetry 100 01/12/24 15:44 Oxygen Delivery Room Air 01/12/24 15:44 Temperature 98 F 01/12/24 15:44 Pulse Rate 71 01/12/24 15:44 Respiratory Rate 18 01/12/24 15:44 Blood Pressure 145/85 H 01/12/24 15:44 Pulse Oximetry 100 01/12/24 15:44 Oxygen Delivery Room Air 01/12/24 15:44 MDM - Abdominal Pain MDM Narrative Medical decision making narrative: Patient presenting here with chronic abdominal pain, he was told to come back because his CT was abnormal, I did review the CT and saw that the only abnormality on it was a possibly contracted gallbladder, which may be because patient had eaten recently, he has no right upper quadrant pain whatsoever nor tenderness, so I do not feel this is related, I do feel he is stable for discharge and he can follow up General surgery as needed for continued lower abdominal pain to the left side that could be related to prior inguinal hernia surgery. Patient agreeable to this plan. Return precautions discussed. Discharge Plan Discharge Clinical Impression: Chronic abdominal pain Patient Disposition: Home, Self-Care Condition: Stable Instructions: Antibiotic Form, Abdominal Pain (ED) Prescriptions: New acetaminophen [Tylenol Extra Strength] 500 mg tablet 1,000 mg PO Q6H PRN (Reason: pain) Qty: 50 0RF methocarbamol 750 mg tablet 750 mg PO TID PRN (Reason: muscle spasm) Qty: 30 0RF dicyclomine 20 mg tablet 20 mg PO TID Qty: 30 0RF ibuprofen 600 mg tablet 600 mg PO TID PRN (Reason: fever or pain) Qty: 30 0RF No Action divalproex 500 mg Tablet Extended Release 24 Hr 500 mg PO BID Follow-up/Referrals: Flora,Sheyla Bonilla MD [Primary Care Provider] - Jose Drew DO [Physician] - 3 Days
== END 2024-01-12 16:37 | disposition home or self-care (01) ==
PROVIDERS: Emergency Provider Emergency Medicine; PCP Family Medicine
DX: R10.32 Left lower quadrant pain (principal); G89.29 Other chronic pain
CPT/HCPCS: 99283

== ENCOUNTER 2024-02-04 06:32 | Outpatient (CLI) | payer OTHER, SELFPAY ==
--- NOTE | ~2024-02-04 | MR_ITS ---
EXAMINATION: MR pelvis wo/w con DATE: 02/04/2024 07:43 INDICATION: Left lower quadrant abdominal pain. TECHNIQUE: Magnetic resonance imaging (MRI) of the pelvis was performed without and with 20 mL MultiH ance intravenous contrast. COMPARISON: CT abdomen and pelvis 01/09/2024 FINDINGS: There are no dilated loops of bowel. There are changes of right inguinal hernia repair. There are no pathologically enlarged lymph nodes. There is no free intraperitoneal fluid. There is mild osteoarthr itis of the hips. Osteitis pubis is noted. The musculature is normal. IMPRESSION: 1. Osteitis pubis. 2. Mild osteoarthritis of the hips. Reviewed, dictated and finalized at location E.
== END 2024-02-04 06:33 | disposition home or self-care (01) ==
PROVIDERS: PCP Family Medicine; Visit Provider Surgery
DX: R10.32 Left lower quadrant pain (principal); M16.0 Bilateral primary osteoarthritis of hip
CPT/HCPCS: 72197; A9577

== ENCOUNTER 2024-06-09 12:12 | Emergency (ER) | payer OTHER, SELFPAY ==
--- NOTE | 2024-06-09 12:13 | ED.URI ---
HPI - URI/Sore Throat General Chief Complaint: Upper Respiratory Infection Stated Complaint: Headache/Sinus Time Seen by Provider: 06/09/24 12:29 Source: patient, RN notes reviewed and old records reviewed Mode of arrival: ambulatory Limitations: no limitations History of Present Illness HPI Narrative: 43-year-old male presents to the [facility] with 1 week history of sinus, runny nose, cough, headache. Had seen his primary care provider on Thursday, was prescribed azithromycin. Treatments prior to arrival: antibiotics Related Data Home Medications Medication Instructions Recorded Confirmed divalproex 500 mg tablet,extended 500 mg PO BID 05/09/21 06/09/24 release 24 hr Allergies Allergy/AdvReac Type Severity Reaction Status Date / Time No Known Allergies Allergy Unknown Verified 06/09/24 12:16 Review of Systems Review of Systems: All systems reviewed & are unremarkable except as noted in HPI and below Constitutional: Constitutional: Reports no additional constitutional complaints Eyes: Eyes: Reports no additional eye complaints ENT: Reports as per HPI and Reports nasal congestion Cardiovascular: Cardiovascular: Reports no additional cardiovascular complaints, Denies chest pain and Denies dyspnea Respiratory: Respiratory: Reports as per HPI, Denies chest congestion, Reports cough and Denies dyspnea Gastrointestinal: Gastrointestinal: Reports no additional gastrointestinal complaints, Denies abdominal pain, Denies nausea and Denies vomiting Musculoskeletal: Musculoskeletal: Reports no additional musculoskeletal complaints Integumentary/Breasts: Skin/Breast: Reports system reviewed and no additional complaints, except as docu Neurologic: Reports system reviewed and no additional complaints, except as documented Psychiatric: Psychiatric: Reports no additional psychiatric complaints Allergic/Immunologic: Allergic/Immunologic: Reports no additional allergic/immunologic complaints [facility] Past Medical History Medical History History of seizures Surgical History Surgical History Hx of right inguinal hernia repair Social History Social History Smoking status: Never smoker Alcohol intake: never Substance use: never Gender identity (if verbalized by the patient): Male Spiritual care concerns: No Comments At the time of my signature, I reviewed and agree with the nursing past medical, surgical, social, and family history. There is no relevant family history pertinent to the patient complaint. Exam Const: General: cooperative, healthy appearing, comfortable, no acute distress, well developed, alert and well nourished Nutritional Appearance: well nourished Orientation/consciousness: patient oriented x3 Limitations: no limitations HENMT: Head: normal to inspection Ears: hearing grossly normal bilaterally, external ears normal, TM's normal bilaterally, EAC's normal, mastoids normal and no periauricular adenopathy Face/Nose/Sinus: Normal external nose present, Normal nares present, Normal nasal mucous membranes and turbinates present, normal facial exam and face symmetric Face and sinus: normal facial exam and face symmetric Mouth: Yes Normal oral and palatal mucosa present, Yes lip normal and Yes tongue normal Throat: posterior oropharynx normal, uvula midline and no uvular edema Eyes: General: appearance normal, both eyes and all related structures Alignment and Position: alignment normal Periorbital: periorbital findings normal Pupils: Equal, round and reactive pupils present EOM: EOMs intact bilaterally Neck: Neck: normal visual inspection, full ROM, no lymphadenopathy and no meningeal signs Chest: Chest palpation & inspection: normal inspection of the chest Resp: Effort & Inspection: normal respiratory effort and able to speak
[2024-06-09 12:27] VITALS: BP 142/92; PULSE 78; RESP 20; TEMP 36.4; O2SAT 100
[2024-06-09 12:48] LABS: EDINFLUASCREEN Negative; EDINFLUBSCREEN Negative
== END 2024-06-09 12:51 | disposition home or self-care (01) ==
PROVIDERS: Emergency Provider Nurse Practitioner; PCP Family Medicine
DX: J06.9 Acute upper respiratory infection, unspecified (principal); Z20.822 Contact with and (suspected) exposure to COVID-19; G40.909 Epilepsy, unspecified, not intractable, without status epilepticus
CPT/HCPCS: 87426; 87804; 99213; G0463

== ENCOUNTER 2024-08-17 07:55 | Outpatient (RCR) | payer OTHER, SELFPAY ==
--- NOTE | 2024-08-17 08:55 | OPREHPOC ---
Outpatient Therapy Plan of Care This is a Multidisciplinary Plan of Care that may contain components documented by all disciplines (PT, OT, and ST.) PT Problem 1 PT Problem #1 Knowledge Deficit PT Goal 1 Goal / Goal Update *indep with HEP Target Visit 6 PT Problem 2 PT Problem #2 Pain PT Goal 1 Goal / Goal Update 1* pt report pain at worst rating of 5/10 2* self assessment LE functional scale rating of 30% limitation in activity level 3* pt report with sleeping, awaken 1x/night due to pain Target Visit 6 PT Problem 3 PT Problem #3 Impaired Flexibility PT Goal 1 Goal / Goal Update increase anterior hip/quad flexibility to decrease pull on anterior hip *prone knee flexion L 120' Target Visit 6 PT Problem 4 PT Problem #4 Impaired Strength PT Goal 1 Goal / Goal Update increase trunk and abdominal strength to improve stability to hip, to decrease pain *pt perform 20 reps of ball exercises in sitting and supine with good stability of trunk Target Visit 6
--- NOTE | 2024-08-17 08:55 | PTOPEVAL1 ---
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 have decreased fitness exercises due to pain; currently- bench press, some light basket ball playing; have been doing some abdominal work at the gym-- sit ups and incline sit ups; Reported Pain Level Pain Score Self Report Additional Pain Score Comments pain range of 3-8/10: L anterior hip/groin area sharp pain, dull sometimes increase pain: running, increase weight resistance on machines., L hip flexion decrease pain: rest, meloxicam, wear compression shorts/pants with sleeping awaken 1-2x/night, sometimes problems getting comfortable to fall asleep Assessment PT Clinical Summary Kris has the diagnosis of L groin pain/ osteitis pubis. x ray report states mild OA in hips and osteitis pubis. He was told by the dr that they suspect a sports hernia and want him to increase his core strength. LE Functional scale rating of 49% limitation in activity level. He has decreased his running and fitness activity due to pain. 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 With the evaluation: he has tightness over R and L hamstrings and anterior hip/quad muscles; good LE strength with slight decreased of abdominal strength; good standing posture and equal weight bearing; pain is increased with active and resisted hip flexion motion. Skilled PT services are indicated to increase abdominal strength and flexibility of hips, modalities PRN for pain and education for HEP. Plan of Care Interventions Hot Pack/Cold Pack,Manual Therapy,Neuro Re- education,Patient Education,Therapeutic Activities,Therapeutic Exercise PT Services Indicated Yes Treatment Frequency and 1x/wk for 6 visits Duration These treatments will address the objective and functional deficits as defined above. The patient will be advanced safely and appropriately in order for the patient to progress towards his/her prior level of function. Additional exercises will be introduced and as well as a comprehensive home exercise program upon discharge, if needed, ?to ensure carryover of functional gains achieved in the clinic. This treatment plan has been reviewed and agreement upon by the patient.
--- NOTE | 2024-08-24 08:35 | PCPTNOTE ---
Pt NS visit today forgetting he had an appt. He noted he is used to getting a reminder text/call.
--- NOTE | 2024-08-31 09:18 | PCPTNOTE ---
Pt no showed visit. Left message about next appt. day and time.
--- NOTE | 2024-09-07 08:26 | PCPTNOTE ---
No call No show, reason unknown. Attempted to contact pt 8:30 am wireless customer unavailable. Note (3) missed treatment. AKS
--- NOTE | 2024-09-14 08:12 | PCPTNOTE ---
4 No show no call. Due to policy will discharge pt at this time following numerous attempts to contact pt. AKS
--- NOTE | 2024-09-14 10:34 | PTOPDC ---
Assessment and note entered by Leena Berger, PT Discharge Report Assessment Status Discharge - Pt Not Present Diagnosis groin pain, oseoitis pubis ICD-10 Condition Codes (PT) Pain in left hip M25.552 Onset Oct 2023 Subjective Information pt was not seen this date. Assessment PT Clinical Summary Kris received the PT evaluation on Aug 17 and did not show for 4 scheduled appointments. Discharge PT due to not attending. The goals were not assessed. Plan of Care PT Services Indicated No
== END 2024-09-14 13:44 | disposition home or self-care (01) ==
LOC: ANHPT 07:55
PROVIDERS: PCP Family Medicine
DX: R10.32 Left lower quadrant pain (principal); M85.38 Osteitis condensans, other site
CPT/HCPCS: 97110; 97161; 97530

== ENCOUNTER 2025-01-24 09:42 | Outpatient (CLI) | payer OTHER, SELFPAY ==
--- NOTE | ~2025-01-24 | CT_ITS ---
Non-contrast Head CT History: Headache Technique: Axial non-contrast imaging of the brain was performed. Dose reduction technique was used on this scan by utilizing automated exposure control and iterative reconstruction technique. The dose -length product (DLP) was 605.33 mGy-cm. Findings: There is no evidence of intracranial hemorrhage, mass lesion, or acute infarct. Brain par enchyma appears normal. The ventricles and subarachnoid spaces are normal in size. The calvarium ap pears normal. The visualized paranasal sinuses and mastoid air cells are clear. Impression: No significant abnormality seen. Reviewed, dictated and finalized at location . Impression: No significant abnormality seen.
--- OUTSIDE RECORDS SUMMARY | 2025-01-24 10:50 | XMS_ITS | Clinical Summary ---
Author Organization [facility] Address [facility] [place] [address] Care Team Providers Care [employer]ogn[employer] Report Developer Name Role Phone None, Provider MD Primary Care Provider Unavaila ble Allergies No known active allergies Medications No known medications Encounters Date Type Department Care Team Description 12/19/2024 8:20 PM CDT - 12/19/2024 10:38 PM CDT Emergency [facility] [place] [address] Sarahi Lozano PA Headache Discharge Disposition: Home or Self Care (Routine Discharge) 12/19/2024 Travel from Last 3 Months Social History Tobacco Use Types Packs/Day Years Used Date Smoking Tobacco: Never Smokeless Tobacco: Never Tobacco Cessation:Counseling Given: Not Answered Alcohol Use Standard Drinks/Week Comments Never 0 (1 standard drink = 0.6 oz pur e alcohol) Sex and Gender Information Value Date Recorded Sex Assigned at Male 12/19/2024 8:11 PM CDT Legal Sex Male 8:32 PM CDT Gender Identity Not on file Sexual Orientation Not on file Last Filed Vital Signs Vital Sign Reading Time Taken Comments Blood Pressure 134/76 12/19/2024 9:58 PM CDT Pulse 61 12/19/2024 9:58 PM CDT Temperature 36.2 C (97.2 F) 12/19/2024 8:13 PM CDT Respiratory Rate 18 12/19/2024 9:58 PM CDT Oxygen Saturation 100% 12/19/2024 9:58 PM CDT Inhaled Oxygen Concentration - - Weight 117.9 kg (260 lb) 12/19/2024 8:13 PM CDT Height 191.8 cm (6' 3.5 ) 12/19/2024 8:13 PM CDT Body Mass Index 32.07 12/19/2024 8:13 PM CDT Plan of Treatment Health Maintenance Due Date Last Done Comments Annual Physical 1983 Hepatitis C 1998 Hepatitis B Vaccines (2 of 3 - Hep B Twinrix 3-dose series) 02/16/2019 01/19/2019 COVID-19 Vaccine (4 - 2023-2 5 season) 2024 08/27/2021, 08/05/2021, 08/05/2021 DTaP, Tdap and Td Vaccines ( 2 - Td or Tdap) 07/19/2025 07/19/2015 HPV Vaccines Aged Out No longer eligi ble based on patient's age to complete this topic Meningococcal B Vaccine Aged Out No l onger eligible based on patient's age to complete this topic Meningococcal Vaccine Aged Out No jesse mine eligible based on patient's age to complete this topic Pneumococcal Vaccine: Pediatrics (0 to 5 Years) and At-Risk Patients (6 to 49 Years) Aged Out No longer eligible b ased on patient's age to complete this topic RSV Immunizations Under 20 Months Aged Out No longer eligible b ased on patient's age to complete this topic Insurance [place] Care Teams Cognos Report Developer Relationship Specialty Start Date End Date None, Provider, MD PCP - General UNKNOWN PHYSICIAN SPECIALTY 12/19/24
--- OUTSIDE RECORDS SUMMARY | 2025-01-24 10:50 | XMS_ITS | Clinical Summary ---
Author Organization [facility] Physician Office [facility] [id number] [place] [id number] Care Team Providers Care Hospitalist Medical Director Name Role Phone Sheyla Hines MD Primary Care Provider + Azael Beltran MD Unavailable [phone] Allergies No known active allergies Medications divalproex DR (DEPAKOTE) 500 mg EC tablet Take 1 tablet (500 mg total) by mouth 2 (two) times a day 60 tablet 3 Active meloxicam (MOBIC) 15 mg tablet Take 1 tablet (15 mg total) by mouth daily Active meclizine (ANTIVERT) 25 mg tablet Take 1 tablet (25 mg total) by mouth 3 (three) times a day as needed for dizziness Active traMADoL (ULTRAM) 50 mg tablet Take 1 tablet (50 mg total) by mouth every 6 (six) hours Active busPIRone (BUSPAR) 15 mg tabletIndication s:Generalized Anxiety Disorder Take 1 tablet (15 mg total) by mouth 3 (three) times a day Active creatine monohydrate 5,000 mg powder in packet Take by mouth Active multivitamin tabletIndication s:Vitamin Deficiency Prevention Take 1 tablet by mouth Active HYDROcodone-acet aminophen (HYCET) 10-325 mg/15 mL(15 mL) solution Take by mouth every 6 (six) hours as needed for moderate pain (pain scale 5-7) Active Active Problems Problem Noted Date Diagnosed Date Seizure 02/18/2014 Overview (01/09/2017): CONVULSIONS NEC Encounters Date Type Department Care Team Description 11/22/2024 Telephone [facility] ([facility] - [facility] Minimally Invasive Surgery [address] [facility] [address], [place] [id number] Iris Lima MA from Last 3 Months Surgical History Surgery Date Site/Laterality Comments INGUINAL HERNIA REPAIR Right Lap Medical History Medical History Date Comments Seizure disorder (HCC) Seizure d isorder Hx Other Medical Headache, migra ine Dizziness Migraine Family History Medical History Relation Name Comments Hypertension Father 2 Hypertension; Hypertension Mother 2 Hypertension; Seizures Mother 2 Seizure disorde r; Relation Name Status Comments Father 1 Alive Father 2 Mother 1 Alive Mother 2 Social History Tobacco Use Types Packs/Day Years Used Date Smoking Tobacco: Never Smokeless Tobacco: Never Tobacco Cessation:Counseling Given: Not Answered Alcohol Use Standard Drinks/Week Comments No 0 (1 standard drink = 0.6 oz pur e alcohol) Sex and Gender Information Value Date Recorded Sex Assigned at Not on file Legal Sex Male 10:53 AM [employer]ONATION TE[employer] Gender Identity Not on file Sexual Orientation Not on file Obstetrics History Last Filed Vital Signs Vital Sign Reading Time Taken Comments Blood Pressure 132/84 06/10/2024 9:00 AM CDT Pulse 72 06/10/2024 9:00 AM CDT Temperature 36.8 C (98.3 F) 06/10/2024 9:00 AM CDT Respiratory Rate - - Oxygen Saturation - - Inhaled Oxygen Concentration - - Weight 113.4 kg (250 lb) 06/10/2024 9:00 AM CDT Height 190.5 cm (6' 3 ) 06/10/2024 9:00 AM CDT Body Mass Index 31.25 06/10/2024 9:00 AM CDT Plan of Treatment Health Maintenance Due Date Last Done Comments Depression Screening 1980 Hepatitis C Screening 1980 Prostate Cancer Screening-PSA 1980 Varicella Vaccines (1 of 2 - 13+ 2-dose series) 1993 Regular Well Visit/Exam 18-64 1998 Influenza Vaccine (Season Ended) 2025 08/17/2023, 07/14/2022, 08/05/2021, Additional history exists DTaP/Tdap/Td Vaccine (2 - Td or Tdap) 07/19/2025 07/19/2015 Hepatitis B Screening Completed 01/19/2019 HPV Vaccines Aged Out No longer eligi ble based on patient's age to complete this topic Pneumococcal vaccine <65 Aged Out No longer eligible based on patient's age to complete this topic Insurance [facility] MEDICAID [facility] Care Teams Hospitalist Medical Director Relationship Specialty Start Date End Date Sheyla Hines MD PCP - General Family Medicine 09/17/18 Azael Beltran MD [address] [place] [address] Referring Physician General Surgery 02/10/24
--- OUTSIDE RECORDS SUMMARY | 2025-01-24 10:50 | XMS_ITS | Clinical Summary ---
Author Organization [facility] Address [address] [place] [address] Care Team Providers Care Oil Well Driller Name Role Phone Sheyla Hines MD Primary Care Provider [phone] Source Comments [facility],non-owned Affiliates and Associated Physician Practices is amultiple site organization consisting of ambulatory clinics and hospital sitesin [place], [place], [place] and [place]. This disclosure is being madepursuant to the Care Everywhere program and may not contain all information available regarding this patient. Last updated 18.[facility] Allergies No known active allergies Medications * Be aware that medications may not be up to date on this document. Alwaysverify current medications with the patient. 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[employer] Gender Identity Not on file Sexual Orientation Not on file Last Filed Vital Signs Vital Sign Reading Time Taken Comments Blood Pressure 146/72 03/16/2020 8:13 AM CDT Pulse 70 03/16/2020 8:13 AM CDT Temperature 36.7 C (98 F) 03/16/2020 8:13 AM CDT Respiratory Rate 17 03/16/2020 8:13 AM CDT Oxygen Saturation 99% 03/16/2020 8:13 AM CDT Inhaled Oxygen Concentration 21% 03/12/2020 1 1:45 AM CDT Weight 115.7 kg (255 lb) 03/12/2020 11:59 AM CDT Height 190.5 cm (6' 3 ) 03/12/2020 11:59 AM CDT Body Mass Index 31.87 03/12/2020 11:59 AM CDT Plan of Treatment Health Maintenance Due Date Last Done Comments LIPID TESTING 1980 HIV SCREENING 1995 HEPATITIS C SCREENING 10/11/1998 DTAP/TDAP/TD VACCINES (1 - Tdap) 1999 HEPATITIS B VACCINE (1 of 3 - 19+ 3-dose series) 1999 COVID-19 VACCINE ( - 2023- season) 2024 DEPRESSION SCREENING 10/05/2024 INFLUENZA VACCINE (Season Ended) 2025 08/22/2019, 06/22/2018, 09/14/2017, Additional history exists ZOSTER VACCINE (1 of 2) 2030 HIB VACCINE Aged Out No longer eligi ble based on patient's age to complete this topic HPV VACCINE Aged Out No longer eligi ble based on patient's age to complete this topic MENINGOCOCCAL (Group B) VACCINE SHARED DECISION-MAKING Aged Out No longer eligible based on patient's age to complete this topic MENINGOCOCCAL GROUPS A/C/Y/W VACCINE Aged Out No longer eligible based on patient's age to complete this topic PNEUMOCOCCAL VACCINE Aged Out No long er eligible based on patient's age to complete this topic Insurance [employer] [facility] [place] [address] [facility] Advance Directives * Full Code (Latest Code Status on File) Date Activated Date Inactivated Comments 03/12/2020 11:40 AM 03/16/2020 8:12 PM Care Teams Oil Well Driller Relationship Specialty Start Date End Date Sheyla Hines MD [address] [place] [id number] PCP - General 08/24/18
--- OUTSIDE RECORDS SUMMARY | 2025-01-24 10:50 | XMS_ITS | Data Portability ---
Author Organization [facility] [employer], Main Office Address [address] [place] [address] Care Team Providers Care Director Of Partnerships Name Role Phone MENG HINES Primary Care Provider [phone] MENG HINES Referring Provider Assessment Encounter Date Assessment Date Assessment LastModified by Organization Details LastModified Time 12/27/2024 12/27/2024 I have reconciled the patient's medications post their discharge from inpatient facility. taco Not available 12/27/2024 08:54:35 Plan of Treatment Reminders Order Date Submit Date Provider Last Modified By Organization Details Last Modified Time Details Appointments None recorded. Lab valproic acid, total, serum 2024 025 [facility] (Lab), [address] [place], [address], 08:32:51 CBC w/ auto diff 2024 025 [facility] (Lab), [address] [place], [address], 19:12:11 CT + NG + TV, RNA, unspecifie d specimen 2024 025 [facility] (Lab), [address] [place], [address], 08:32:51 HbA1c (hemoglobi n A1c), blood 2024 025 [facility] (Lab), [address] [place], [address], 5 19:12:11 CMP, serum or plasma 2024 025 [facility] (Lab), [address] [place], [address], 5 19:12:11 CT + NG RNA, PCR, unspecifie d specimen [address], [address] [place], [address], 4 08:44:03 RPR (rapid plasma reagin), serum [address], [address] [place], [address], 4 08:44:03 HIV 1+2 Ab + HIV1 p24 Ag, quantitati ve immunoassa y, serum 2023 024 [facility], [address] [place], [address], 4 15:19:17 lipid panel, serum 2023 024 [facility], [address] [place], [address], 4 08:58:19 HbA1c (hemoglobi n A1c), blood 2023 024 [facility], [address] [place], [address], 4 08:58:19 CBC w/ auto diff [address], [address] [place], [address], 4 15:29:24 CMP, serum or plasma 2023 024 [facility], [address] [place], [address], 4 08:58:20 valproic acid, free + total, serum 2023 024 [facility], [address] [place], [address], 4 08:58:20 Referral neurologis t referral - Please call patient to schedule an appointmen t. Thank you. 2024 [facility] [address] , [address], [place], [address], 19:25:20 Procedures None recorded. Surgeries None recorded. Imaging XR, cervical spine 2024 [facility], [address], [address], [place], [address], 5 14:33:34 CT, head, w/o contrast 2024 [facility], [address], [place], [address], 5 11:20:36 Medication Orders ketorolac 30 mg/mL (1 mL) injection solution 2024 llalor Not available 10:21:29 buspirone 15 mg tablet 2024 [facility] [address] , [place], [address], 5 09:25:46 meclizine 25 mg tablet 2023 024 [facility] [address], [address] , [place], [address], 4 09:44:45 meloxicam 15 mg tablet 2023 024 [facility] [address], [address] , [place], [address], 09:44:43 tramadol 50 mg tablet 2023 [facility] [address], [address] , [place], [address], 09:44:47 buspirone 15 mg tablet 2023 024 [facility] [address], [address] , [place], [address], 09:44:46 Patient TargetsNo targets recorded. Patient Instructions Encounter Date Encounter Id Patient Instructions Last Modified By Organization Details Last Modified Time 12/27/2024 [id number] Thank you for your visit to our office today. We would like to request that you reach out to your referring or previous provider and request that they send us a Summary of Care in electronic form, so that we may have it on file in your medical record. At your visit, we had the medical records we needed to provide you with the best possible care; however, for insurance purposes, an electronic Summary of Care is beneficial. Thank you for your assistance in obtaining this information and we look forward to providing continued care to you. Please review your medication list from the Summary of Care for this visit. If there are any differences from what you are currently taking at home, please call us to discuss. taco Not available 12/27/2024 08:54:35 Homebound Status : {{Patient has an inability to leave the home without a taxing effort and assistance from another person Does not meet homebound status}} Required Home Health Services: {{none prison, physical therapy, occupational therapy prison, physical therapy prison}} Durable Medical Equipment needed: {{cane walker wal ker with seat manual wheelchair bedsid e commode oxygen}} Billing Guidelines CPT code 16157- Transitional Care Management services with moderate medical decision complexity (avuv-er-kirr visit within 14 days of discharge). CPT code 52785- Transitional Care Management services with high medical decision complexity ([id number] visit within 7 days of discharge). taco Not available 12/27/2024 08:54:35 Reason for Referral Neurologist Referral for Sei zure disorder Please call patient to schedule an appointment. Thank you. Referring Physician: Perla Lugo, Family Medicine, Encounter Date: 12/27/2024 Results Created Date Observation Date Name Description Value Unit Range Abnormal Flag Note LastModifiedBy Organization Detail LastModifiedTime 08/31/20 24 08/31/2024 rapid strep group A, throa t STREP A negati ve Not Available [facility] [address], [place], [address], 08/31/2024 08:42:23 01/25/20 25 01/24/2025 CT, head, w/o contr ast No observ ation record ed. [place] [id number], [place], [address], 01/24/2025 11:20:36 Result Notes None recorded. Problems Name Problem SNOMED Code Status Onset Date Resolution Date Notes Provider Name and Address Organization Details Recorded Time Hordeolum externum of upper eyelid of right eye 60677474172 9100 Active 2022 Not Available [facility] 3 09:40:57 Serum creatinin e above reference range 283763490 Active 2022 Not Available [facility] 3 09:40:57 Hypercalc emia 93876690 Active 2022 Not Available [facility] 3 09:40:57 Dysuria 20078976 Active 2022 Not Available [facility] 3 09:40:57 Pain of right wrist 09042879865 9100 Active 2022 Not Available [facility] 3 09:40:57 Leukopeni a 33041265 Active 2022 Not Available [facility] 3 09:40:57 Erectile dysfuncti on 343268459 Active 2023 Meng Hines MD [address], [address], [place], [address] , [employer] [email or web address] 4 08:30:57 Depressiv e disorder 15463164 Active 2023 KALINA Alejandre [address], [address], [place], [address] , [employer] [email or web address] 4 09:36:32 Vertigo 515154194 Active 2023 KALINA Alejandre [address], [address], [place], [address] , [employer] [facility] 4 09:37:16 Acute sinusitis 41003618 Active 2023 KALINA Alejandre [address], [address], [place], [address] , [employer] [facility] [email or web address] [facility] [employer] 4 14:31:27 Cough 92340640 Active 2023 KALINA De Anda [address], [address], [place], [address] , [employer] [facility] [email or web address] [facility] [employer] 4 15:35:08 Upper respirato ry infection 60117169 Active 2023 Jeanne Bautista RN null, [place] [facility] 4 08:41:55 Sore throat 763761751 Active 2023 Jeanne Bautista RN null, [employer] [facility] [employer] 4 08:42:31 Headache 80996583 Active 2024 KALINA Alejandre [address], [address], [place], [address] , [employer] [email or web address] 5 09:19:22 Neck pain 06745866 Active 2024 KALINA Alejandre [address], [address], [place], [address] , [employer] [email or web address] 5 10:03:50 Seizure disorder 829721199 Active Not Available [facility] 3 09:40:57 Pain of left elbow joint 40640103991 054889 Active 2021 Not Available [facility] 3 09:40:57 Localized , primary osteoarth ritis 139088878 Active Not Available [facility] 3 09:40:57 Knee joint effusion 743141947 Active Not Available [facility] 3 09:40:57 Abdominal pain 83171324 Active Not Available [facility] 3 09:40:57 Right inguinal hernia 885775251 Active Not Available [facility] 3 09:40:57 Avulsion - injury 814085887 Active Not Available [facility] 3 09:40:57 Swelling of knee joint 734783709 Active Not Available [facility] 3 09:40:57 Right lower quadrant pain 344305183 Active Not Available [facility] 3 09:40:57 Ureteric stone 05255195 Completed Not Available [facility] 3 04:54:14 Epididymi tis 93313452 Active Not Available [facility] 3 09:40:57 Thoracic spondylos is 155207099 Active 2020 Not Available [facility] 3 09:40:57 Bacterial folliculi tis 297926066 Active Not Available [facility] 3 09:40:57 Viral syndrome 721852904 Active Not Available [facility] 3 09:40:57 Disorder of male genital organ 78289289 Active Not Available [facility] 3 09:40:57 Prediabet es 452829334 Active 2017 Not Available [facility] 3 09:40:57 Fatigue 99753792 Active Not Available [facility] 3 09:40:57 Pain in limb 52698115 Active Not Available [facility] 3 09:40:57 Seizure 79367821 Completed Not Available [facility] 3 04:54:15 Problem Notes None recorded. Procedures Surgical History Date Name Laterality Status Provider Name and Address Organization Details Recorded Time 5 Transitional_C are_Management completed EMILE Tristan [facility] 12/27/2024 08:54:35 hernia repair completed EMILE Tristan [facility] 12/27/2024 09:05:10 vasectomy completed EMILE Tristan [facility] 12/27/2024 09:05:19 Imaging Results Imaging Date Name Status LastModified by Organiz ation Details LastModified Time 01/24/2025 CT, head, w/o contrast active [facility] [address], [place], [address], 01/24/2025 11:20:36 Procedure Notes None recorded. Medical Equipment None Reported. Allergies No known drug allergies Medications Name Sig Start Date Stop Date Status Note LastModified by Organization Details LastModified Time amoxicillin 500 mg capsule TAKE 1 CAPSULE BY MOUTH EVERY 12 HOURS 08/11 completed Not Available Not Available Not Available prednisone 10 mg tablet 02/10 completed Not Available Not Available Not Available clindamycin HCl 300 mg capsule 12/25 completed Not Available Not Available Not Available divalproex 250 mg tablet,maude yed release TAKE 1 TABLET BY MOUTH TWICE DAILY 07/14 completed Not Available Not Available Not Available trazodone 50 mg tablet Take 1 tablet every day by oral route. active Not Available Not Available No t Available azithromyci n 250 mg tablet TAKE 2 TABLETS BY MOUTH ON DAY 1, AND THEN TAKE 1 TABLET BY MOUTH ONCE A DAY ON DAY 2 THROUGH DAY 5 12/27 completed Not Available Not Available Not Available ibuprofen 800 mg tablet TAKE 1 TABLET BY MOUTH THREE TIMES DAILY NEEDED FOR PAIN 02/19 completed Not Available Not Available Not Available fluconazole 150 mg tablet 05/27 completed Not Available Not Available Not Available benzonatate 200 mg capsule TAKE 1 CAPSULE BY MOUTH THREE TIMES DAILY NEEDED 12/27 completed Not Available Not Available Not Available clarithromy froylan 500 mg tablet 02/10 completed Not Available Not Available Not Available hydrocodone 5 mg-acetamin ophen 325 mg tablet TAKE 1 TABLET BY MOUTH EVERY 8 HOURS NEEDED FOR PAIN 06/17 completed Not Available Not Available Not Available meloxicam 15 mg tablet Take 1 tablet every day by oral route with meals. active Not Available Not Available No t Available prednisone 20 mg tablet TAKE 2 TABLETS BY MOUTH ONCE DAILY FOR 5 DAYS 12/27 completed Not Available Not Available Not Available Tubersol 5 tub. unit/0.1 mL intradermal injection solution inject 0.1ml intraderm ally once 12/27 completed Date read: 07/29. Test negat ayleen. 0mm indur ation . Not Available Not Available Not Available dexamethaso ne 6 mg tablet 05/21 completed Not Available Not Available Not Available venlafaxine ER 150 mg capsule,ext ended release 24 hr Take 1 capsule every day by oral route. active Not Available Not Available No t Available meclizine 12.5 mg tablet TAKE 1 TO 2 TABLETS BY MOUTH THREE TIMES DAILY NEEDED FOR VERTIGO 12/28 completed Not Available Not Available Not Available Zyrtec 10 mg tablet Take 1 tablet every day by oral route for 30 days. 11/22 completed Not Available Not Available Not Available divalproex 500 mg tablet,maude yed release TAKE 1 TABLET BY MOUTH TWICE DAILY active Not Available Not Available No t Available ciprofloxac in 500 mg tablet 08/22 completed Not Available Not Available Not Available sulfamethox azole 800 mg-trimetho prim 160 mg tablet Take 1 tablet every 12 hours by oral route for 10 days. active Not Available Not Available No t Available tramadol 50 mg tablet active Not Available Not Available No t Available ketorolac 30 mg/mL (1 mL) injection solution inject 1 ml intramusc ularly once 2024 active Not Available Not Available Not Avai lable meloxicam 7.5 mg tablet Take 1 tablet twice a day by oral route as needed. 08/11 completed Not Available Not Available Not Available amoxicillin 875 mg tablet TAKE 1 TABLET BY MOUTH EVERY 12 HOURS FOR 7 DAYS 09/15 completed Not Available Not Available Not Available methocarbam ol 750 mg tablet TAKE 1 TABLET BY MOUTH THREE TIMES DAILY FOR 5 DAYS active Not Available Not Available No t Available trazodone 100 mg tablet 1/2 po to 1 po qhs prn insomnia active Not Available Not Available No t Available dicyclomine 20 mg tablet TAKE 1 TABLET BY MOUTH THREE TIMES DAILY 12/27 completed Not Available Not Available Not Available meclizine 25 mg tablet Take 1 tablet 3 times a day by oral route. 2023 active Not Available Not Available Not Avai lable benzonatate 100 mg capsule 05/21 completed Not Available Not Available Not Available cephalexin 500 mg capsule TAKE 1 CAPSULE BY MOUTH TWICE DAILY FOR 7 DAYS 11/22 completed Not Available Not Available Not Available erythromyci n 5 mg/gram (0.5 %) eye ointment INSTILL 0.5 INCH INTO EACH EYE THREE TIMES A DAY 12/22 completed Not Available Not Available Not Available oseltamivir 75 mg capsule Take 1 capsule twice a day by oral route for 5 days. 11/22 completed Not Available Not Available Not Available buspirone 10 mg tablet TAKE 1 TO 2 TABLETS BY MOUTH TWICE DAILY NEEDED 09/21 completed Not Available Not Available Not Available divalproex ER 500 mg tablet,exte nded release 24 hr TAKE 1 TABLET BY MOUTH TWICE DAILY 07/14 completed Not Available Not Available Not Available promethazin e 25 mg tablet TAKE 1 TABLET BY MOUTH EVERY 6 HOURS NEEDED FOR NAUSEA 1ST LINE. 02/19 completed Not Available Not Available Not Available diclofenac sodium 75 mg tablet,maude yed release Take 1 tablet twice a day by oral route. active Not Available Not Available No t Available cephalexin 500 mg tablet Take 1 tablet twice a day by oral route for 7 days. 11/22 completed Not Available Not Available Not Available ceftriaxone 500 mg solution for injection 500 mg IM x 1 07/14 completed Not Available Not Available Not Available diclofenac sodium 50 mg tablet,maude yed release Take 1 tablet twice a day by oral route. active Not Available Not Available No t Available lorazepam 1 mg tablet TAKE 1 TABLET BY MOUTH TWICE DAILY active Not Available Not Available No t Available ibuprofen 600 mg tablet TAKE 1 TABLET BY MOUTH THREE TIMES DAILY NEEDED FOR PAIN FOR FEVER 06/17 completed Not Available Not Available Not Available zolpidem 10 mg tablet 1 po qhs prn insomnia 11/22 completed Not Available Not Available Not Available methylpredn isolone 4 mg tablets in a dose pack TAKE BY MOUTH DIRECTED ON INSIDE OF PACKAGE 12/27 completed Not Available Not Available Not Available albuterol sulfate HFA 90 mcg/actuati on aerosol inhaler Inhale 2 puffs every 4 hours by inhalatio n route as needed. 09/21 completed Not Available Not Available Not Available Cipro 250 mg tablet Take 1 tablet twice a day by oral route as directed. 2012 active Not Available Not Available Not Avai lable ondansetron 4 mg disintegrat ing tablet DISSOLVE 1 TABLET IN MOUTH EVERY 6 TO 8 HOURS NEEDED FOR NAUSEA 11/22 completed Not Available Not Available Not Available fluticasone propionate 50 mcg/actuati on nasal spray,suspe nsion Wallace 1 spray every day by intranasa l route. 11/22 completed Not Available Not Available Not Available doxycycline hyclate 100 mg tablet 05/27 completed Not Available Not Available Not Available loratadine 10 mg tablet Take 1 tablet every day by oral route for 30 days. active Not Available Not Available No t Available amoxicillin 875 mg-potassiu m clavulanate 125 mg tablet Take 1 tablet every 12 hours by oral route for 10 days. active Not Available Not Available No t Available buspirone 15 mg tablet Take 1 tablet twice a day by oral route. 2024 active Not Available Not Available Not Avai lable azithromyci n 500 mg tablet Take 2 tablets every day by oral route for 1 day. active Not Available Not Available No t Available escitalopra m 10 mg tablet active Not Available Not Available Not Available cyclobenzap rine 5 mg tablet Take 1 tablet 3 times a day by oral route as needed. active Not Available Not Available No t Available bupropion HCl XL 150 mg 24 hr tablet, extended release Take 1 tablet every day by oral route. active Not Available Not Available No t Available tadalafil 20 mg tablet 1/2 to 1 tab 30-60 minutes prior to intercour se 2023 active Not Available Not Available Not Avai lable Pain Reliever (acetaminop hen) 500 mg tablet TAKE 2 TABLETS BY MOUTH EVERY 6 HOURS NEEDED FOR PAIN 06/17 completed Not Available Not Available Not Available Paxlovid 300 mg (150 mg x 2)-100 mg tablets in a dose pack TAKE 3 TABLETS TOGETHER (TWO 150 MG NIRMATREL VIR TABLETS AND ONE 100 MG RITONAVIR TABLET) BY MOUTH TWICE DAILY FOR 5 DAYS. 11/10 completed Not Available Not Available Not Available Vitals Date Recorded Body height Body mass index (BMI) Body weight Body temperature Heart rate Oxygen saturation Oxygen saturation in Arterial blood by Pulse oximetry Systolic blood pressure Diastolic blood pressure Provider Name and Address Organization Details Last Updated DateTime 4 190.5 cm 31.2 kg/m2 444682. 09 g 98.1 [degF] 90 /min 99 % 99 % 126 mm[Hg] 80 mm[Hg] Omkar Guthrie RN [facility] [employer] [facility] 4 09:25:44 Date Recorded Body height Provider Name an d Address Organization Details Last Updated DateTime 07/29/2024 190.5 cm Jeanne Bautista RN [facility] [employer] [facility] 07/29/2024 08:42:47 Date Recorded Body height Provider Name an d Address Organization Details Last Updated DateTime 08/31/2024 190.5 cm Jeanne Bautista RN [facility] [employer] [facility] 08/31/2024 08:51:00 Date Recorded Body height Body mass index (BMI) Body weight Body temperature Heart rate Oxygen saturation Oxygen saturation in Arterial blood by Pulse oximetry Pain severity - 0-10 verbal numeric rating [Score] - Reported Systolic blood pressure Diastolic blood pressure Provider Name and Address Organization Details Last Updated DateTime 5 190.5 cm 32.5 kg/m2 145759. 02 g 97.7 [degF] 75 /min 98 % 98 % 7 136 mm[Hg] 78 mm[Hg] Rayna Alegria MA [facility] [employer] [facility] 5 09:02:20 Social History Question Answer Notes LastModified by Organizat ion Details LastModified Time Tobacco Smoking Status Never Smoker Not Available [facility] 12/03/2022 04:42:27 Do You Have An Advance Directive? No [id number] Information not available 12/03/2022 What Is Your Level Of Alcohol Consumption? None [id number] Information not available 12/03/2022 What Is Your Level Of Caffeine Consumption? Moderate Information not available 01/21/2023 In The 14 Days Before Symptom Onset, Have You Had Close Contact With A Laboratory-confir med COVID-19 While That Case Was Ill? No [id number] Information not available 12/03/2022 In The 14 Days Before Symptom Onset, Have You Had Close Contact With A Person Who Is Under Investigation For COVID-19 While That Person Was Ill? No [id number] Information not available 12/03/2022 Are You Currently Employed? Yes Information not available 12/27/2024 What Type Of Diet Are You Following? REGULAR [id number] Information not available 12/03/2022 Have There Been Any Changes To Your Family Or Social Situation? No [id number] Information not available 12/03/2022 Do You Use Insect Repellent Routinely? No Information not available 12/27/2024 Where Do You Live? [place] [id number] Information not available 12/03/2022 Do You Have A Medical Power Of Mail Machine Operator? No [id number] Information not available 12/03/2022 What Was The Date Of Your Most Recent Tobacco Screening? 12/27/2024 Information not available 12/27/2024 Do You Have Any Pets? Yes [id number] Information not available 12/03/2022 What Is Your Relationship Status? Domestic Partner Information not available 12/27/2024 Do You Use Your Seat Belt Or Car Seat Routinely? Yes [id number] Information not available 12/03/2022 Do You Have Smoke And Carbon Monoxide Detectors In Your Home? Yes [id number] Information not available 12/03/2022 Are You Passively Exposed To Smoke? No [id number] Information not available 12/03/2022 Are There Any Smokers In Your House? No [id number] Information not available 12/03/2022 Do You Participate In Social Media? No [email or web address] Information not available 01/21/2023 Do You Feel Stressed (tense, Restless, Nervous, Or Anxious, Or Unable To Sleep At Night)? [id number] [id number].[id number] Information not available 12/03/2022 Do You Use Any Illicit Or Recreational Drugs? No Information not available 01/21/2023 Do You Use Sunscreen Routinely? No Information not available 12/27/2024 Has Tobacco Cessation Counseling Been Provided? No [email or web address] Information not available 01/21/2023 Have You Recently Traveled Abroad? No [id number] Information not available 12/03/2022 Do You Have Any Dietary Restrictions? No [id number] Information not available 12/03/2022 Do You Or Have You Ever Used Any Other Forms Of Tobacco Or Nicotine? No [email or web address] Information not available 01/21/2023 Sex: Male Functional Status Question Answer Note LastModified by Organization D etails LastModified Time What is your exercise level? Moderate [email or web address] Information not available 12/22/2022 Mental Status None recorded. Family History Relationship Description Onset Age of this Age Resolved Age Notes LastModified by Organization Details LastModified Time Paternal Grandmother Diabetes mellitus [email or web address] Not available 2022 08:06:18 Paternal Grandmother Hypertensive disorder Not available 2022 08:06:39 Medical History Condition Response Do you have a healthcare POA? N NO SIGNIFICANT PAST MEDICAL HISTORY N USE OF BLOOD THINNERS N MRSA N SLEEP APNEA N DIABETES, TYPE N ALLERGIES/HAYFEVER N PARATHYROID DISEASE N ENT N LUNG DISEASE/DISORDER N SEASONAL ALLERGIES N INSOMNIA N HEARTBURN / REFLUX N COPD N RADIATION / CHEMOTHERAPY N HIGH CHOLESTEROL / HYPERLIPIDEMIA N Do you have a living will? N BLOOD DISEASES N EAR OR HEARING PROBLEMS N HEPATITIS / LIVER DISEASE N DEPRESSION (INCLUDING POST ) N SLEEP DISORDER N HAVE YOU BEEN HOSPITALIZED OR SEEN IN [facility] IN THE PAST YEAR ? N STROKE/TIA N ULCERS N HEADACHES/MIGRAINES Y SEIZURES/EPILEPSY Y CHF N PACEMAKER N DIZZINESS Y HEART DISEASE/HEART PROBLEMS N AIDS/HIV N FRACTURES N HYPERTENSION N CANCER: SPECIFY N OBESITY N BLOOD TRANSFUSION N ANESTHESIA COMPLICATIONS N ANEMIA/BLOOD DISORDER N CHRONIC EAR INFECTIONS N ANEURYSM N HISTORY WITH COMPLICATIONS WITH ANESTHES IA ? N TUBERCULOSIS N Do you have Advance directive? N Immunizations Vaccine Type Date Status Note Provider Nam e and Address Organization Details Recorded Time MMR 4 completed Not Available [facility] 09/25/2023 09:40:58 Influenza, split virus, trivalent, PF 3 completed ENEDINA Gutierrez, [facility] [employer] [facility] 11/26/2023 08:16:27 Influenza, split virus, trivalent, preservative 2 completed ENEDINA Gutierrez, [facility] [place] [facility] 11/26/2023 08:16:27 SARS-COV-2 (COVID-19) vaccine, UNSPECIFIED 1 completed Zuleyka Ruiz CMA null, [facility] [place] [facility] 11/26/2023 08:16:27 Influenza, split virus, quadrivalent, preservative 1 completed Zuleyka Ruiz CMA null, [facility] [place] [facility] 11/26/2023 08:16:26 Influenza, split virus, quadrivalent, PF 9 completed Not Available [facility] 09/25/2023 09:40:58 Influenza, split virus, quadrivalent, PF 7 completed Not Available [facility] 09/25/2023 09:40:58 Tdap 5 completed Not Available [facility] 09/25/2023 09:40:58 Influenza, split virus, quadrivalent, PF 4 completed Not Available [facility] 09/25/2023 09:40:58 Influenza, split virus, quadrivalent, PF 2 completed Zuleyka Ruiz CMA null, [facility] [place] [facility] 11/26/2023 08:16:27 Influenza, split virus, quadrivalent, PF 8 completed Not Available [facility] 09/25/2023 09:40:58 Influenza, split virus, quadrivalent, preservative 6 completed Not Available [facility] 09/25/2023 09:40:58 Influenza, split virus, quadrivalent, PF 5 completed Not Available [facility] 09/25/2023 09:40:58 MMR 4 completed Not Available [facility] 09/25/2023 09:40:58 Influenza, split virus, quadrivalent, PF 3 completed Omkar Guthrie RN null, [facility] [place] [facility] 08/17/2023 12:18:53 Past Encounters Encounter ID Performer Location Encounter Start Date Encounter Closed Date Diagnosis/Indication Diagnosis SNOMED-CT Code Diagnosis ICD10 Code Diagnosis Note [id number] [facility] [place] [address] [place] [address] 01/23/2021 00:00:00 01/23/2021 12:31:19 [id number] [facility] [place] [address] [place] [address] 03/20/2021 00:00:00 04/02/2021 15:23:21 [id number] [facility] [place] [address] [place] [address] 04/01/2021 00:00:00 04/02/2021 13:28:25 [id number] [facility] [place] [address] [place] [address] 05/21/2021 00:00:00 06/02/2021 22:45:47 [id number] [facility] [place] [address] [place] [address] 08/08/2021 00:00:00 08/08/2021 10:46:26 [id number] [facility] [place] [address] [place] [address] 10/23/2021 00:00:00 10/23/2021 13:48:10 [id number] [facility] [place] [address] [place] [address] 12/25/2021 00:00:00 12/25/2021 17:56:59 [id number] [facility] [place] [address] [place] [address] 01/21/2022 00:00:00 01/22/2022 20:14:40 [id number] [facility] [place] [address] [facility] [address] [place] [address] 02/19/2022 00:00:00 02/19/2022 16:03:16 [id number] [facility] [place] [address] [place] [address] 03/18/2022 00:00:00 04/02/2022 23:39:26 [id number] [facility] [place] [facility] [address] [facility] [address] [place] [address] 04/01/2022 00:00:00 04/01/2022 13:07:46 [id number] [facility] [place] [address] [place] [address] 05/19/2022 00:00:00 05/19/2022 13:35:34 [id number] [facility] [place] [address] [place] [address] 05/27/2022 00:00:00 05/27/2022 13:40:21 [id number] [facility] [place] [address] [place] [address] 06/04/2022 00:00:00 06/04/2022 16:30:08 [id number] [facility] [place] [address] [place] [address] 06/17/2022 00:00:00 06/17/2022 10:51:08 [id number] [facility] [place] [address] [place] [address] 07/04/2022 00:00:00 07/04/2022 12:57:34 [id number] [facility] [place] [address] [place] [address] 07/14/2022 00:00:00 07/14/2022 11:03:03 [id number] [facility] [place] [address] [place] [address] 08/26/2022 00:00:00 09/02/2022 08:10:14 [id number] [facility] [place] [address] [place] [address] 11/10/2022 00:00:00 11/10/2022 14:33:44 [id number] Meng Hines MD [facility] [place] [address] [place] [address] 12/22/2022 07:56:48 12/22/2022 08:23:16 Hordeolum externum of upper eyelid of right eye [id number] 96590 H00.011 resolved, f/u prn Seizure disorder 1492950 02 G40.909 depakote level was low at last appt, he has been much better taking his med as prescribed since last appt and has an improved work schedulere check depakote level and adjust as neededcont inue depakote 500 mg po bid Serum crea tinine above reference range 361355454 R79.89 Hypercalcemia 55608290 E 83.52 [id number] Meng Hiens MD [facility] [place] [address] [facility] [address] [place] [address] 01/05/2023 11:42:40 01/05/2023 12:32:04 [id number] Meng Hines MD [facility] [place] [address] [facility] [address] [place] [address] 01/21/2023 08:00:28 01/21/2023 08:17:08 Seizure disorder 920409474 G40.909 free depakote back in normal range, he is taking meds as prescribed and denies seizuresco ntinue depakote 500 mg po bidf/u in 3 months or sooner if needed [id number] MABLE Mccarthy [facility] [place] [address] [facility] [address] [place] [address] 04/13/2023 14:44:27 04/13/2023 15:05:30 [id number] PRINCESS Guerrero [facility] [place] [address] [facility] [address] [place] [address] 06/26/2023 08:07:12 06/26/2023 08:19:40 [id number] Gonzalo Cast MD [facility] [place] [address] [place] [address] 08/11/2023 10:46:26 08/11/2023 12:00:16 Pain of right wrist [id number] 64230 M25.410 [id number] Meng Hines MD [facility] Primary Care [facility] [address] [facility] [address] [place] [address] 08/17/2023 08:37:59 08/17/2023 09:23:18 Prediabetes 472344336 R73.03 Seizure disorder 4926203 02 G40.909 he is taking meds as prescribed and denies seizuresco ntinue depakote 500 mg po bidcheck labs Fatigue 74082117 R53.83 Renewal of prescription 914725994 Z76.0 Venereal d isease screening 447961675 Z11.3 Administra tion of influenza vaccine 54156839 Z23 [id number] Gonzalo Cast MD [facility] [place] [facility] [address] [place] [address] 09/16/2023 09:13:59 09/16/2023 09:42:46 Pain of right wrist 6576187341 28397 M25.780 [id number] Gonzalo Cast MD [facility] [address] [place] [address] 10/14/2023 09:50:46 10/14/2023 11:17:30 Pain of right wrist 1958024502 76544 M25.831 [id number] KALINA De Anda [facility] Primary Care [facility] [address] [facility] [address] [place] [address] 11/12/2023 08:17:53 11/12/2023 14:17:22 [id number] Meng Hines MD [facility] Primary Care [facility] [address] [facility] [address] [place] [address] 11/26/2023 08:09:30 11/26/2023 08:46:02 Prediabetes 521286642 R73.03 improved at last check with a1c 5.8he continues lifestyle modificati on Seizure disorder 9720444 02 G40.909 he is taking meds as prescribed and denies seizuresco ntinue depakote 500 mg po bidcheck labs Venereal d isease screening 666265895 Z11.3 per pt request Erectile dysfunction 860 579332 F52.21 refill given [id number] KALINA Alejandre [facility] [place] [address] [place] [address] 05/12/2024 09:21:25 05/12/2024 10:03:30 Right inguinal hernia 113207057 K40.90 Venereal d isease screening 771735311 Z11.3 Depressive disorder 3548 9007 F32.A Vertigo 572766752 R42 Laboratory test due 1653 30033 Z76.89 [id number] KALINA Alejandre [facility] [place] [address] [place] [address] 07/27/2024 08:55:11 07/27/2024 11:33:04 [id number] KALINA Alejandre [facility] [place] [address] [place] [address] 07/29/2024 08:40:52 07/29/2024 08:43:09 [id number] KALINA Alejandre [facility] [place] [address] [place] [address] 08/31/2024 08:44:43 08/31/2024 08:52:05 [id number] KALINA Alejandre [facility] [place] [address] [place] [address] 12/27/2024 08:48:56 12/27/2024 09:46:33 Transition of care [id number] [address] [facility] on 12/20 following grand mal seizure Headache 03075389 R51.9 Seizure disorder 9907198 02 G40.909 Depressive disorder 3548 9007 F32.A Diabetes m ellitus screening 748487584 Z13.1 Venereal d isease screening 747208342 Z11.3 Neck pain 99685801 M54.2 Health Concerns Section Related Observation LastModified by Organization Detai ls LastModified Time None Recorded Concern Status LastModified by Organization Details LastModified Time None Recorded Advance Directives Directive N: Payers Encounter Date Sequence Insurance Name Policy Number Policy Bender Covered Member ID Bender Member ID Guarantor Name 05/12/2024 1 [facility] (MEDICAID HMO) [id number] Kris Starkeys [id number] Kris Mcginnis 07/27/2024 1 [facility] (MEDICAID HMO) [id number] Kris Bonilla Mcginnis [id number] Kris Bonilla Mcginnis 07/29/2024 1 [facility] (MEDICAID HMO) [id number] Kris L Mcginnis [id number] Kris L Mcginnis 08/31/2024 1 [facility] (MEDICAID HMO) [id number] Kris Bonilla Mcginnis [id number] Kris Bonilla Mcginnis 12/27/2024 1 [facility] (MEDICAID HMO) [id number] Kris Starkeys [id number] Kris Mcginnis Notes Date Note Type Note Provider Name and Address Organization Details Recorded Time 05/12/2024 text/html Patient is a 43 year old male that presents to the office for a follow up. Patient reports he is scheduled with a surgeon next month for a hernia tear. He was prescribed Meloxicam however it is not really helping anymore. Patient would like additional medication for breakthrough pain. Patient also reports his episodes are vertigo are increasing to almost daily. Patient believes it is related to increased stress as that is when he noticed the episodes became more frequent. Patient requesting STD testing. Patient denies known exposure..he states she says she may have been exposed . Patient denies symptoms including penile pain and discharge, urinary burning and frequency. Patient denies lesions. Patient denies chest pain and shortness of breath, nausea vomiting and diarrhea. Patient requesting 6 month labs to be ordered for the end of this month. PRINCESS Alejandre-Beulah [address] [facility], [facility] [address], [place], [address], [facility] [employer] [facility] [employer] 05/12/2024 12:58:38 12/27/2024 text/html Patient is a 44 year old male that presents to the office for hospital follow up. Patient went to the ER on 12/20 following a grand mal seizure due to intense headache that would not go away. Patient reports he was given a cocktail and lidocaine pain and discharged with diagnosis of pinched nerve. Patient does not feel like the he was treated appropriately at the ER. Patient reports he has had continuous right sided posterior headache that he rates 7/10 today. Patient reports he has had not had any relief greater than 7/10 since. Patient reports intermittent blurred vision and dizziness associated with headache. Patient reports light and sound sensitivity. Patient denies radiation of pain. Patient has pinpoint tenderness to right posterior neck. Patient is requesting to update labs and test for STIs. Patient denies known exposure and symptoms. Perla Lugo, [employer] [address] [address], [place], [address], [facility] [employer] 12/27/2024 10:06:39
--- OUTSIDE RECORDS SUMMARY | 2025-01-24 10:50 | XMS_ITS | Clinical Summary ---
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 Use in each nostril as directed. Active HYDROcodone-randolph taminophen (NORCO) 5-325 MG Tablet Take 1 Tab by mouth every 4 hours as needed. Active ibuprofen (MOTRIN) 600 MG Tablet Take 600 mg by mouth every 8 hours. Active Loratadine 10 MG Capsule Take by mouth. Acti ve traZODone (DESYREL) 150 MG Tablet Take 150 mg by mouth nightly. Active tuberculin (TUBERSOL) 5 UNIT/0.1ML Solution 0.1 mL by Intradermal route once. Active venlafaxine (EFFEXOR-XR) 150 MG CAPSULE SR 24 HR Take 150 mg by mouth daily. Active zolpidem (AMBIEN) 10 MG Tablet Take 10 mg by mouth nightly as needed. Active cetirizine (ZYRTEC ALLERGY) 10 MG Tablet Take 10 mg by mouth daily. Active divalproex (DEPAKOTE ER) 500 MG TABLET SR 24 HR Take 3 Tabs by mouth 2 times daily. 180 Tab 6 9 Active dicyclomine (BENTYL) 20 MG Tablet Take 1 Tablet by mouth every 8 hours as needed (Abdominal cramping). 10 Tablet 1 Active promethazine (PHENERGAN) 25 MG Tablet Take 1 Tablet by mouth every 6 hours as needed for Nausea - 1st line. 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 Gender Identity Not on file Sexual Orientation Not on file Last Filed Vital Signs Vital Sign Reading Time Taken Comments Blood Pressure 101/75 04/03/2021 12:00 AM CDT Pulse 68 04/03/2021 12:00 AM CDT Temperature 36.6 C (97.8 F) 04/02/2021 9:34 PM CDT Respiratory Rate 18 04/02/2021 9:34 PM CDT Oxygen Saturation 96% 04/03/2021 12:00 AM CDT Inhaled Oxygen Concentration - - Weight 118.4 kg (261 lb) 04/02/2021 9:34 PM CDT Height 190.5 cm (6' 3 ) 04/02/2021 9:34 PM CDT Body Mass Index 32.62 04/02/2021 9:34 PM CDT Plan of Treatment Health Maintenance Due Date Last Done Comments Hepatitis C Virus (HCV) Screening 1980 Hepatitis B Immunization (2 of 3 - Hep B Twinrix 3-dose series) 02/16/2019 01/19/2019 Influenza Immunization (#1) 06/05/202408/05, 06/22/2018, 09/14/2017, Additional history exists SARS-COV-2 Immunization ( - 2023- season) 2024 08/27/2021, 08/05/2021 Respiratory Syncytial Virus (RSV) Immunization (Adult) (1 - 1-dose 75+ series) 2055 DTaP/Tdap/Td Immunization Discontinued 07/19/2015 TdaP Immunization Completed 07/19/2015 Meningococcal Immunization (ACWY) Aged Out No longer eligible based on patient's age to complete this topic Pneumococcal Immunization Combined Aged Out No longer eligible based on patient's age to complete this topic Rotavirus Immunization Aged Out No lo nger eligible based on patient's age to complete this topic Insurance [place]ICAID [place] Care Teams Bass Guitar Teacher Relationship Specialty Start Date End Date Sheyla Hines MD [address] [place] [id number] PCP - General Family Medicine 06/13/19
--- OUTSIDE RECORDS SUMMARY | 2025-01-24 10:50 | XMS_ITS | Referral Summary ---
Author Organization [facility] [address] [address] [place] [address] Care Team Providers Care Filling Winder Name Role Phone Sheyla Hines MD Primary Care Provider + Azael Beltran MD Unavailable [phone] Encounters Date Type Department Care Team Description 11/22/2024 Telephone [facility] Minimally Invasive Surgery [address] [facility] [address]th Floor, [place] [address] Iris Lima MA from Last 3 Months Allergies No known active allergies Medications divalproex [...] Date Seizure 02/18/2014 Overview (01/09/2017): CONVULSIONS NEC Social History Tobacco Use Types Packs/Day Years Used Date Smoking Tobacco: Never Smokeless Tobacco: Never Tobacco Cessation:Counseling Given: Not Answered Alcohol Use Standard Drinks/Week Comments No 0 (1 standard drink = 0.6 oz pur e alcohol) Sex and Gender Information Value Date Recorded Sex Assigned at Not on file 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
== END 2025-01-24 09:43 | disposition home or self-care (01) ==
PROVIDERS: PCP Family Medicine; Visit Provider Nurse Practitioner Family
DX: R51.9 Headache, unspecified (principal)
CPT/HCPCS: 70450